=== PATIENT | female | born 1985 | race African-American/Black ===

== ENCOUNTER 2016-02-20 21:54 | Emergency (ER) | payer OTHER ==
[~2016-02-20 21:54] MED LIST: CETI10TA22 PO; HYDR25TA PO; LISI40TA PO; PROAIR RESPICL90 MCG IH; TRIA15CR3 TP
[2016-02-20 22:00] VITALS: BP 157/99
[2016-02-20] MEDS ORDERED: HYDR115S2 PO (22:16)
[2016-02-20] MEDS ORDERED: SULF1TAB24 PO (22:16)
--- NOTE | 2016-02-20 22:17 | PHYS DOC ---
Past Medical History Past Medical History: Asthma, Hypertension Past Surgical History: Alcohol Use: None Drug Use: None Adult General Chief Complaint Chief Complaint: HEADACHE HPI HPI Patient is a 30 year old female presents emergency room with complaint of cough congestion and headache for the past 7 days. Patient reports that she's increased sinus pressure and pain when she bends over. She states that the cough and also gives her headache. She denies any fevers, chills, myalgias or arthralgias. Patient denies foreign travel, antibiotic use or hospitalization within the past 90 days. Review of Systems Review of Systems Constitutional: Denies fever or chills [] Eyes: Denies change in visual acuity, redness, or eye pain [] HENT: Denies nasal congestion or sore throat [] Respiratory: Denies cough or shortness of breath [] Cardiovascular: No additional information not addressed in HPI [] GI: Denies abdominal pain, nausea, vomiting, bloody stools or diarrhea [] : Denies dysuria or hematuria [] Musculoskeletal: Denies back pain or joint pain [] Integument: Denies rash or skin lesions [] Neurologic: Denies headache, focal weakness or sensory changes [] Endocrine: Denies polyuria or polydipsia [] Allergies Allergies Allergies Coded Allergies Type Severity Reaction Last Updated Verified Penicillins Allergy Intermediate 07/04/14 No benzonatate Allergy Intermediate "i will throw up" 04/03/15 Yes prednisone Allergy Intermediate Nausea and Vomiting 04/03/15 No Physical Exam Physical Exam Constitutional: Well developed, well nourished, no acute distress, non-toxic appearance. Patient is ill-appearing. She is not toxic appearing. HENT: Normocephalic, atraumatic, bilateral external ears normal, oropharynx moist, no oral exudates. Thick, mucopurulent drainage and bilateral nares with boggy, swollen mucous membranes. Eyes: PERRLA, EOMI, conjunctiva normal, no discharge. [] Neck: Normal range of motion, no tenderness, supple, no stridor. No meningismus. There is bilateral anterior and posterior cervical lymphadenopathy. Cardiovascular:Heart rate regular rhythm, no murmur [] Lungs & Thorax: There is no evidence respiratory distress or respiratory fatigue. There is no posturing. Lung sounds are clear to auscultation bilaterally. Abdomen: Bowel sounds normal, soft, no tenderness, no masses, no pulsatile masses. [] Skin: Warm, dry, no erythema, no rash. Back: No tenderness, no CVA tenderness. [] Extremities: No tenderness, no cyanosis, no clubbing, ROM intact, no edema. [] Neurologic: Alert and oriented X 3, normal motor function, normal sensory function, no focal deficits noted. [] Psychologic: Affect normal, judgement normal, mood normal. [] Current Patient Data Vital Signs Vital Signs Date Time Temp Pulse Resp B/P Pulse Ox O2 Delivery O2 Flow Rate FiO2 02/20/16 22:00 98.2 84 18 157/99 100 Room Air 98.2 EKG EKG [] Radiology/Procedures Radiology/Procedures [] Course & Med Decision Making Course & Med Decision Making Pertinent Labs and Imaging studies reviewed. (See chart for details) [] Dragon Disclaimer Dragon Disclaimer This electronic medical record was generated, in whole or in part, using a voice recognition dictation system. Departure Departure Impression: Primary Impression: Sinusitis Additional Impression: Upper respiratory infection Disposition: HOME, SELF-CARE Condition: GOOD Referrals: NO PCP (PCP) Patient Instructions: Sinusitis, Ixoy-dl-Rgil, Upper Respiratory Infection, Adult, [id number] Additional Instructions: 1. Take the medication as prescribed. Use iukz-ofn-[id number] Afrin nasal spray twice a day for the next 3 days. 2. Review the discharge instructions for reasons to return to the emergency room. 3. Use the pamphlet provided for assistance in finding a primary care doctor. Be sure to call Sunday to schedule an appointment. Scripts Hydrocodone/Chlorphen Polis (Tussionex Pennkinetic Susp)480 Ml Mary Ann.er.12h5 Ml PO BID #100 ML Prov:CEDRIC ROMERO 02/20/16 Sulfamethoxazole/Trimethoprim (Bactrim Ds Tablet)1 Each Tablet1 Each PO BID #28 TAB Prov:CEDRIC ROMERO 02/20/16 Problem Qualifiers CEDRIC ROMERO Feb 20, 2016 22:17
== END 2016-02-20 22:20 | disposition home or self-care (01) ==
LOC: ER 21:54
DX: J32.9 Chronic sinusitis, unspecified (principal); J06.9 Acute upper respiratory infection, unspecified; I10 Essential (primary) hypertension; J45.909 Unspecified asthma, uncomplicated; Z88.0 Allergy status to penicillin; Z88.1 Allergy status to other antibiotic agents; Z88.8 Allergy status to other drugs, medicaments and biological substances
CPT/HCPCS: 99283

== ENCOUNTER 2016-06-25 22:50 | Emergency (ER) | payer OTHER ==
[~2016-06-25] VITALS: Ht 162.6 cm; Wt 104.3 kg
[~2016-06-25 22:50] MED LIST changes: +HYDR115S2 PO; +SULF1TAB24 PO
[2016-06-25 23:25] VITALS: BP 163/103
[2016-06-25] MEDS ORDERED: IBUP-1060 PO (23:48)
--- NOTE | 2016-06-25 23:48 | PHYS DOC ---
Past Medical History Past Medical History: Asthma, Hypertension Past Surgical History: Alcohol Use: None Drug Use: None Adult General Chief Complaint Chief Complaint: HAND PROBLEM HPI HPI Patient is a 31 year old female presents to the emergency department with a history of right arm pain and discomfort. Patient denies any injury or trauma. She states his been hurting for the last 2 weeks. She states she's been taken ibuprofen 500 mg for the pain and discomfort with no relief. She denies any palpitations movement with the arms. She then states that she is also been having pain and discomfort with her left arm as well. Patient states that she's been having numbness and tingling down to the hands. She also states that she's been taken antibiotics for the arm pain. Review of Systems Review of Systems Constitutional: Denies fever or chills [] Eyes: Denies change in visual acuity, redness, or eye pain [] HENT: Denies nasal congestion or sore throat [] Respiratory: Denies cough or shortness of breath [] Cardiovascular: No additional information not addressed in HPI [] GI: Denies abdominal pain, nausea, vomiting, bloody stools or diarrhea [] : Denies dysuria or hematuria [] Musculoskeletal: Denies back pain or joint pain [] Integument: Denies rash or skin lesions [] Neurologic: Denies headache, focal weakness or sensory changes [] Endocrine: Denies polyuria or polydipsia [] Allergies Allergies Allergies Coded Allergies Type Severity Reaction Last Updated Verified Penicillins Allergy Intermediate 07/04/14 No benzonatate Allergy Intermediate "i will throw up" 04/03/15 Yes prednisone Allergy Intermediate Nausea and Vomiting 04/03/15 No Physical Exam Physical Exam Constitutional: Well developed, well nourished, no acute distress, non-toxic appearance. [] HENT: Normocephalic, atraumatic, bilateral external ears normal, oropharynx moist, no oral exudates, nose normal. [] Eyes: PERRLA, EOMI, conjunctiva normal, no discharge. [] Neck: Normal range of motion, no tenderness, supple, no stridor. [] Cardiovascular:Heart rate regular rhythm, no murmur [] Lungs & Thorax: Bilateral breath sounds clear to auscultation [] Skin: Warm, dry, no erythema, no rash. [] Back: No tenderness Extremities: Right elbow tenderness, no cyanosis, no clubbing, ROM intact, no edema. She'll with full range of motion although she states that she has increased pain with straightening the elbow. 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 No swelling or deformity noted. Neurologic: Alert and oriented X 3, normal motor function, normal sensory function, no focal deficits noted. [] Psychologic: Affect normal, judgement normal, mood normal. [] Current Patient Data Vital Signs Vital Signs Date Time Temp Pulse Resp B/P (MAP) Pulse Ox O2 Delivery O2 Flow Rate FiO2 06/25/16 23:25 98.3 90 20 96 Room Air 98.3 EKG EKG [] Radiology/Procedures Radiology/Procedures [] Course & Med Decision Making Course & Med Decision Making Pertinent Labs and Imaging studies reviewed. (See chart for details) Patient was encouraged to use ibuprofen 800 mg every 8 hours. Also recommended rest and elevation as much as possible ice packs on 20 minutes off 20 minutes several times a day. Patient will be provided with orthopedic name and number to follow up with. Patient was provided with signs and symptoms to return back to emergency department. [] Dragon Disclaimer Dragon Disclaimer This electronic medical record was generated, in whole or in part, using a voice recognition dictation system. Departure Departure Impression: Primary Impression: Bursitis of elbow Disposition: 01 HOME, SELF-CARE Condition: STABLE Referrals: NO PCP (PCP) Patient Instructions: Bursitis, [id number] Additional Instructions: Activity as tolerated. Medications as prescribed. Ibuprofen 800 mg every 8 hours take this medication with food to prevent stomach upset. If this develops stop taking the medication Ice packs on 20 minutes off 20 minutes several times a day. Elevation as much as possible. Follow-up with orthopedic as needed in the next week. Return back to emergency prior signs symptoms of become worse. Scripts Ibuprofen (IBUPROFEN) 800 Mg Tablet 800 MG PO PRN Q6HRS Y for INFLAMMATION, #20 TAB Prov: NANCY OBREGON APRN 06/25/16 NANCY OBREGON APRN June 25, 2016 23:48
[2016-06-26] MEDS ORDERED: IBUPROFEN 800 MG TABLET. PO ONE
== END 2016-06-25 23:50 | disposition home or self-care (01) ==
LOC: ER 22:50
DX: M70.21 Olecranon bursitis, right elbow (principal); J45.909 Unspecified asthma, uncomplicated; I10 Essential (primary) hypertension; Z88.1 Allergy status to other antibiotic agents; Z88.8 Allergy status to other drugs, medicaments and biological substances; Y93.89 Activity, other specified
CPT/HCPCS: 99283

== ENCOUNTER 2016-07-26 20:24 | Emergency (ER) | payer SELFPAY ==
[~2016-07-26] VITALS: Ht 162.6 cm; Wt 104.3 kg
[~2016-07-26 20:24] MED LIST changes: +IBUP-1060 PO
[2016-07-26 21:18] VITALS: BP 147/101
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
[2016-07-26] MEDS ORDERED: NAPR500T3 PO (23:13)
[2016-07-26] MEDS ORDERED: CYCL10TA2 PO (23:13)
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
[2016-07-26] MEDS ORDERED: HYDROcodone/APAP 5/325MG 1 TAB TABLET PO ONE (23:30)
[2016-07-26] MEDS ORDERED: CYCLOBENZAPRINE 10 MG TABLET. PO ONE (23:30)
== END 2016-07-26 23:28 | disposition home or self-care (01) ==
LOC: ER 20:24
DX: S13.4XXA Sprain of ligaments of cervical spine, initial encounter (principal); S29.019A Strain of muscle and tendon of unspecified wall of thorax, initial encounter; J45.909 Unspecified asthma, uncomplicated; I10 Essential (primary) hypertension; Z88.0 Allergy status to penicillin; Z88.8 Allergy status to other drugs, medicaments and biological substances; V49.59XA Passenger injured in collision with other motor vehicles in traffic accident, initial encounter; Y99.8 Other external cause status; Y93.89 Activity, other specified; Y92.488 Other paved roadways as the place of occurrence of the external cause
CPT/HCPCS: 72125; 72128; 81025; 99284-25

== ENCOUNTER 2016-07-30 20:26 | Emergency (ER) | payer SELFPAY ==
[~2016-07-30] VITALS: Ht 162.6 cm; Wt 104.3 kg
[~2016-07-30 20:26] MED LIST changes: +CYCL10TA2 PO; +NAPR500T3 PO
[2016-07-30 20:42] VITALS: BP 158/90
[2016-07-30] MEDS ORDERED: IBUPROFEN 800 MG TABLET. PO ONE (21:15)
--- NOTE | 2016-07-30 21:19 | PHYS DOC ---
Past Medical History Past Medical History: Asthma, Hypertension Past Surgical History: Alcohol Use: None Drug Use: None Adult General Chief Complaint Chief Complaint: TOE PROBLEM HPI HPI Patient is a 31 year old female resents to emergency department stating that she is having right great toe pain and discomfort. She states that she has had this pain for the last 3 days. She states that she has tried to take ibuprofen for the pain and discomfort without much relief. She states that she does not take it every 8 hours as directed. Patient states that she does have a family history of gout. She denies any trauma or injury to her foot. Review of Systems Review of Systems Constitutional: Denies fever or chills [] Eyes: Denies change in visual acuity, redness, or eye pain [] HENT: Denies nasal congestion or sore throat [] Respiratory: Denies cough or shortness of breath [] Cardiovascular: No additional information not addressed in HPI [] GI: Denies abdominal pain, nausea, vomiting, bloody stools or diarrhea [] : Denies dysuria or hematuria [] Musculoskeletal: Denies back pain C/o right great toe pain Integument: Denies rash or skin lesions [] Neurologic: Denies headache, focal weakness or sensory changes [] Endocrine: Denies polyuria or polydipsia [] Current Medications Current Medications Current Medications Medications (Trade) Dose Ordered Sig/Rosa Maria Start Time Stop Time Status Last Admin Dose Admin Ibuprofen (Motrin) 800 mg 1X ONCE 07/30/16 21:15 07/30/16 21:16 DC 07/30/16 21:24 800 MG Allergies Allergies Allergies Coded Allergies Type Severity Reaction Last Updated Verified Penicillins Allergy Intermediate 07/04/14 No benzonatate Allergy Intermediate "i will throw up" 04/03/15 Yes prednisone Allergy Intermediate Nausea and Vomiting 04/03/15 No Physical Exam Physical Exam Constitutional: Well developed, well nourished, no acute distress, non-toxic appearance. [] HENT: Normocephalic, atraumatic, bilateral external ears normal, oropharynx moist, no oral exudates, nose normal. [] Eyes: PERRLA, EOMI, conjunctiva normal, no discharge. [] Neck: Normal range of motion, no tenderness, supple, no stridor. [] Cardiovascular:Heart rate regular rhythm Lungs & Thorax: No respiratory distress noted Skin: Warm, dry, no erythema, no rash. [] Back: No tenderness Extremities: Great toe tenderness, toe appears to be red and warm, no cyanosis, no clubbing, ROM intact, no edema. Slight swelling noted to the great toe. No further discoloration noted. Cap refill < 2 seconds. Neurologic: Alert and oriented X 3, normal motor function, normal sensory function, no focal deficits noted. [] Psychologic: Affect normal, judgement normal, mood normal. [] Current Patient Data Vital Signs Vital Signs Date Time Temp Pulse Resp B/P (MAP) Pulse Ox O2 Delivery O2 Flow Rate FiO2 07/30/16 20:42 98.5 107 18 99 Room Air 98.5 Lab Values Laboratory Tests Test 07/30/16 21:25 White Blood Count 7.2 x10^3/uL (4.0-11.0) Red Blood Count 4.14 x10^6/uL (3.50-5.40) Hemoglobin 13.1 g/dL (12.0-15.5) Hematocrit 39.5 % (36.0-47.0) Mean Corpuscular Volume 95 fL (79-100) Mean Corpuscular Hemoglobin 32 pg (25-35) Mean Corpuscular Hemoglobin Concent 33 g/dL (31-37) Red Cell Distribution Width 15.0 % (11.5-14.5) H Platelet Count 240 x10^3/uL (140-400) Neutrophils (%) (Auto) 48 % (31-73) Lymphocytes (%) (Auto) 36 % (24-48) Monocytes (%) (Auto) 11 % (0-9) H Eosinophils (%) (Auto) 4 % (0-3) H Basophils (%) (Auto) 1 % (0-3) Neutrophils # (Auto) 3.4 x10^3uL (1.8-7.7) Lymphocytes # (Auto) 2.6 x10^3/uL (1.0-4.8) Monocytes # (Auto) 0.8 x10^3/uL (0.0-1.1) Eosinophils # (Auto) 0.3 x10^3/uL (0.0-0.7) Basophils # (Auto) 0.0 x10^3/uL (0.0-0.2) Erythrocyte Sedimentation Rate 14 (0-25) Uric Acid 4.4 mg/dL (2.6-6.0) C-Reactive Protein, Quantitative 14.8 mg/L (0-3.3) H Laboratory Tests 07/30/16 21:25 EKG EKG [] Radiology/Procedures Radiology/Procedures [] Course & Med Decision Making Course & Med Decision Making Pertinent Labs and Imaging studies reviewed. (See chart for details) X-ray was negative for any abnormality per Dr. Zazueta. She has been provided with ibuprofen here in the emergency department as she had driven herself here to the emergency department. Uric acid was within normal limits. C-reactive protein was elevated at 14.8. 2240 Report was given to Dr Zazueta who will followup on the CBC and sed rate. He is aware the x-ray was negative as he had provided results. He is aware of the treatment plan as follows. Will be placed on Bactrim for cellulitis. She'll also be provided with ibuprofen 800 mg which she can take for pain and discomfort. She is also been prescribed hydrocodone for severe pain and discomfort she was instructed this medication will cause drowsiness do not take any be alert and oriented. Spoke with patient regards to ice packs elevation and following up with her primary care physician. She'll be given a doctor's list to follow up with. Recommended to return back to emergency department as signs and symptoms to return has been provided. Patient agrees with discharge instructions treatment regimens and follow-up recommendations. [] Dragon Disclaimer Dragon Disclaimer This electronic medical record was generated, in whole or in part, using a voice recognition dictation system. Departure Departure Impression: Primary Impression: Cellulitis of great toe, right Disposition: 01 HOME, SELF-CARE Condition: STABLE Referrals: NO PCP (PCP) Patient Instructions: Cellulitis, Jogz-ij-Rrfe Additional Instructions: Your x-rays were negative for any bony abnormalities. Ibuprofen 800 mg every 8 hours with food stop taking few develop an upset stomach. [place] for severe pain and discomfort. This medication will cause drowsiness do not take any be alert and oriented. Medication as prescribed. Wear the postop shoe for comfort. Elevation as much as possible. Follow-up with your primary care physician in the next 7 days. Return back to emergency department for signs and symptoms of become worse. Scripts Hydrocodone/Apap 5-325 (NORCO 5-325 TABLET) 1 Each Tablet 1 TAB PO PRN Q6HRS Y for PAIN, #10 TAB 0 Refills Prov: NANCY OBREGON APRN 07/30/16 Ibuprofen (IBUPROFEN) 800 Mg Tablet 800 MG PO PRN Q8HRS Y for INFLAMMATION, #30 TAB Prov: NANCY OBREGON APRN 07/30/16 Sulfamethoxazole/Trimethoprim (BACTRIM DS TABLET) 1 Each Tablet 1 TAB PO BID, #20 TAB Prov: NANCY OBREGON APRN 07/30/16 NANCY OBREGON APRN Jul 30, 2016 21:19
[2016-07-30 21:50] LABS: C-REACTIVE PROTEIN 14.8 mg/L (0-3.3); URIC ACID 4.4 mg/dL (2.6-6.0)
[2016-07-30] MEDS ORDERED: SULF1TAB24 PO (22:07)
[2016-07-30] MEDS ORDERED: IBUP-1060 PO (22:09)
[2016-07-30] MEDS ORDERED: HYDR-971 PO (22:25)
[2016-07-30 22:37] LABS: BASO % 1 % (0-3); EOS % 4 % (0-3); HEMATOCRIT 39.5 % (36.0-47.0); HEMOGLOBIN 13.1 g/dL (12.0-15.5); LYMPH # 2.6 x10^3/uL (1.0-4.8); LYMPH % 36 % (24-48); MEAN CORPUSCULAR HEMOGLOBIN 32 pg (25-35); MEAN CORPUSCULAR HGB CONC 33 g/dL (31-37); MEAN CORPUSCULAR VOLUME 95 fL (79-100); MONO % 11 % (0-9); NEUT % 48 % (31-73); PLATELET COUNT 240 x10^3/uL (140-400); RED BLOOD COUNT 4.14 x10^6/uL (3.50-5.40); WHITE BLOOD COUNT 7.2 x10^3/uL (4.0-11.0)
--- NOTE | 2016-07-31 07:55 | RAD ---
EXAM: Right first toe 3 views. HISTORY: First toe swelling and pain. COMPARISON: None. FINDINGS: No fractures are identified. Joint spaces and alignment are maintained. No effusions or tophus are seen. There may be a small soft tissue bunion. IMPRESSION: 1. No fracture. Correlate for soft tissue swelling or a small soft tissue bunion.
== END 2016-07-30 22:57 | disposition home or self-care (01) ==
LOC: ER 20:26
DX: L03.031 Cellulitis of right toe (principal); I10 Essential (primary) hypertension; J45.909 Unspecified asthma, uncomplicated; Z88.0 Allergy status to penicillin; Z88.8 Allergy status to other drugs, medicaments and biological substances
CPT/HCPCS: 36415; 73660; 84550; 85027; 85651; 86140; 99285-25

== ENCOUNTER 2017-03-28 22:12 | Emergency (ER) | payer SELFPAY, OTHER | END 2017-03-28 23:30 | disposition home or self-care (01) | LOC: ER 22:12 | DX: M54.5 Low back pain (principal); M54.2 Cervicalgia; J45.909 Unspecified asthma, uncomplicated; I10 Essential (primary) hypertension; Z88.0 Allergy status to penicillin; Z88.8 Allergy status to other drugs, medicaments and biological substances; V47.6XXA Car passenger injured in collision with fixed or stationary object in traffic accident, initial encounter; Y93.89 Activity, other specified; Y92.410 Unspecified street and highway as the place of occurrence of the external cause; Y99.8 Other external cause status | CPT/HCPCS: 99284 ==

== ENCOUNTER 2018-02-07 09:52 | Emergency (ER) | payer MEDICAID, OTHER ==
[~2018-02-07] VITALS: Ht 162.6 cm; Wt 106.1 kg
[~2018-02-07 09:52] MED LIST changes: +CYCL5TAB PO; +HYDR-3164 PO; +IBUP-1007 PO; +LISI-130 PO; +LISI-334 PO; -LISI40TA PO; +NAPR-514 PO; -NAPR500T3 PO; +VENTOLIN HFA18 GM INH; +lidoderm 5% patch TOP
[2018-02-07] MEDS ORDERED: IV NORMAL SALINE 1000ML BAG 1,000 ML IV SCH (11:02)
[2018-02-07 11:10] LABS: BILIRUBIN,URINE NEGATIVE (NEG); CLARITY,URINE CLEAR; COLOR,URINE YELLOW; NITRITE,URINE NEGATIVE (NEG); PH,URINE 6.5; PROTEIN,URINE NEGATIVE (NEG-TRACE)
[2018-02-07] MEDS ORDERED: ONDANSETRON PF 4 MG/2 ML VIAL. IV ONE (11:15)
[2018-02-07] MEDS ORDERED: fentaNYL PF VIAL 100 MCG/2 ML VIAL IV ONE (11:15)
[2018-02-07 11:31] LABS: BASO % 1 % (0-3); EOS % 1 % (0-3); HEMATOCRIT 37.7 % (36.0-47.0); HEMOGLOBIN 12.9 g/dL (12.0-15.5); LYMPH # 1.3 x10^3/uL (1.0-4.8); LYMPH % 22 % (24-48); MEAN CORPUSCULAR HEMOGLOBIN 32 pg (25-35); MEAN CORPUSCULAR HGB CONC 34 g/dL (31-37); MEAN CORPUSCULAR VOLUME 93 fL (79-100); MONO # 1.2 x10^3/uL (0.0-1.1); MONO % 19 % (0-9); NEUT # 3.5 x10^3uL (1.8-7.7); NEUT % 58 % (31-73); PLATELET COUNT 274 x10^3/uL (140-400); RED BLOOD COUNT 4.08 x10^6/uL (3.50-5.40); RED CELL DISTRIBUTION WIDTH 16.9 % (11.5-14.5); WHITE BLOOD COUNT 6.1 x10^3/uL (4.0-11.0)
[2018-02-07 11:35] LABS: SQUAMOUS EPITHELIAL CELL,UR MANY /LPF
[2018-02-07 11:36] LABS: YEAST,URINE PRESENT /HPF
[2018-02-07 11:37] LABS: BACTERIA,URINE FEW /HPF (0-FEW); RBC,URINE 0 /HPF (0-2)
[2018-02-07 11:43] LABS: CALCIUM 9.4 mg/dL (8.5-10.1); CREATININE 1.1 mg/dL (0.6-1.0); GFR 68.8; POTASSIUM 3.7 mmol/L (3.5-5.1)
[2018-02-07 11:47] LABS: ALBUMIN 3.8 g/dL (3.4-5.0); ALBUMIN/GLOBULIN RATIO 0.9 (1.0-1.7); TOTAL BILIRUBIN 0.2 mg/dL (0.2-1.0); TOTAL PROTEIN 8.2 g/dL (6.4-8.2)
[2018-02-07] MEDS ORDERED: CONTRAST GIVEN. MC PRN (12:30)
[2018-02-07] MEDS ORDERED: KETOROLAC 30 MG/ML VIAL. IV ONE (12:30)
[2018-02-07] MEDS ORDERED: IOHEXOL 300 MG/ML 100ML VIAL. IV ONE (12:30)
[2018-02-07 12:31] LABS: INFLUENZA A PATIENT NEGATIVE (NEGATIVE); INFLUENZA B PATIENT NEGATIVE (NEGATIVE)
[2018-02-07 12:32] LABS: BARBITURATES NEG (NEG); BENZODIAZEPINES NEG (NEG); CANNABINOIDS NEG (NEG); COCAINE NEG (NEG); METHADONE NEG (NEG); OPIATES NEG (NEG); PHENCYCLIDINE NEG (NEG)
--- NOTE | 2018-02-07 12:36 | PHYS DOC ---
Past Medical History Past Medical History: Asthma, Hypertension Past Surgical History: Additional Information: 1 CIGARETTE A DAY Alcohol Use: None Drug Use: None Adult General Chief Complaint Chief Complaint: ABDOMINAL PAIN HPI HPI Patient is a 32-year-old female who presents with complaint of left lower abdominal pain that radiates into her back that started 2 days ago. She states that she has had nausea but no vomiting. She denies any diarrhea. She states her last normal bowel movement was about 3 days ago. Patient does not believe that she has run a fever. She rates pain at a 9 out of 10 and states that nothing improves her pain. She states the pain is worsened with movement and with palpation. Review of Systems Review of Systems Constitutional: Denies fever or chills [] Respiratory: Denies cough or shortness of breath [] Cardiovascular: No additional information not addressed in HPI [] GI: Complains of left lower abdominal pain with nausea. Denies vomiting or diarrhea [] : Denies dysuria or hematuria [] Musculoskeletal: Complains of lower back pain [] Integument: Denies rash or skin lesions [] All other systems were reviewed and found to be within normal limits, except as documented in this note. Current Medications Current Medications Current Medications Medications (Trade) Dose Ordered Sig/Rosa Maria Start Time Stop Time Status Last Admin Dose Admin Fentanyl Citrate (Fentanyl 2ml Vial) 50 mcg 1X ONCE 02/07/18 11:15 02/07/18 11:16 DC 02/07/18 11:31 50 MCG Info (CONTRAST GIVEN -- Rx MONITORING) 1 each PRN DAILY PRN 02/07/18 12:30 02/07/18 14:49 DC Iohexol (Omnipaque 300 Mg/ml) 75 ml 1X ONCE 02/07/18 12:30 02/07/18 12:31 DC 02/07/18 12:36 75 ML Ketorolac Tromethamine (Toradol 30mg Vial) 30 mg 1X ONCE 02/07/18 12:30 02/07/18 12:31 DC 02/07/18 12:43 30 MG Ondansetron HCl (Zofran) 4 mg 1X ONCE 02/07/18 11:15 02/07/18 11:16 DC 02/07/18 11:30 4 MG Sodium Chloride 1,000 ml @ 1,000 mls/hr Q1H 02/07/18 11:02 02/07/18 12:01 DC 02/07/18 11:30 1,000 MLS/HR Allergies Allergies Allergies Coded Allergies Type Severity Reaction Last Updated Verified Penicillins Allergy Intermediate 07/04/14 No benzonatate Allergy Intermediate "i will throw up" 04/03/15 Yes prednisone Allergy Intermediate Nausea and Vomiting 04/03/15 No Physical Exam Physical Exam Constitutional: Well developed, well nourished, no acute distress, non-toxic appearance. [] HENT: Normocephalic, atraumatic, bilateral external ears normal, oropharynx moist, no oral exudates, nose normal. [] Eyes: PERRLA, EOMI, conjunctiva normal, no discharge. [] Neck: Normal range of motion, no tenderness, supple, no stridor. [] Cardiovascular: Regular rate and rhythm, no murmur [] Lungs & Thorax: Bilateral breath sounds clear to auscultation [] Abdomen: Bowel sounds normal, soft, with moderate reported tenderness to palpation in the left lower abdomen. [] Skin: Warm, dry, no erythema, no rash. [] Extremities: No tenderness, no cyanosis, no clubbing, ROM intact, no edema. [] Neurologic: Alert and oriented X 3, normal motor function, normal sensory function, no focal deficits noted. [] Current Patient Data Vital Signs Vital Signs Date Time Temp Pulse Resp B/P (MAP) Pulse Ox O2 Delivery O2 Flow Rate FiO2 02/07/18 12:01 16 96 Room Air 02/07/18 11:36 82 154/94 (114) 02/07/18 10:37 99.5 99.5 Lab Values Laboratory Tests Test 02/07/18 10:00 02/07/18 10:42 02/07/18 11:19 02/07/18 11:33 Urine Collection Type Unknown Urine Color Yellow Urine Clarity Clear Urine pH 6.5 Urine Specific [place] 1.020 Urine Protein Negative mg/dL (NEG-TRACE) Urine Glucose (UA) Negative mg/dL (NEG) Urine Ketones (Stick) Negative mg/dL (NEG) Urine Blood Negative (NEG) Urine Nitrite Negative (NEG) Urine Bilirubin Negative (NEG) Urine Urobilinogen Dipstick 1.0 mg/dL (0.2 mg/dL) Urine Leukocyte Esterase Negative (NEG) Urine RBC 0 /HPF (0-2) Urine WBC 1-4 /HPF (0-4) Urine Squamous Epithelial Cells Many /LPF Urine Bacteria Few /HPF (0-FEW) Urine Mucus Slight /LPF Urine Yeast Present /HPF Urine Opiates Screen Neg (NEG) Urine Methadone Screen Neg (NEG) Urine Barbiturates Neg (NEG) Urine Phencyclidine Screen Neg (NEG) Urine Amphetamine/Methamphetamine Neg (NEG) Urine Benzodiazepines Screen Neg (NEG) Urine Cocaine Screen Neg (NEG) Urine Cannabinoids Screen Neg (NEG) Urine Ethyl Alcohol Neg (NEG) POC Urine HCG, Qualitative Hcg negative (Negative) White Blood Count 6.1 x10^3/uL (4.0-11.0) Red Blood Count 4.08 x10^6/uL (3.50-5.40) Hemoglobin 12.9 g/dL (12.0-15.5) Hematocrit 37.7 % (36.0-47.0) Mean Corpuscular Volume 93 fL (79-100) Mean Corpuscular Hemoglobin 32 pg (25-35) Mean Corpuscular Hemoglobin Concent 34 g/dL (31-37) Red Cell Distribution Width 16.9 % (11.5-14.5) H Platelet Count 274 x10^3/uL (140-400) Neutrophils (%) (Auto) 58 % (31-73) Lymphocytes (%) (Auto) 22 % (24-48) L Monocytes (%) (Auto) 19 % (0-9) H Eosinophils (%) (Auto) 1 % (0-3) Basophils (%) (Auto) 1 % (0-3) Neutrophils # (Auto) 3.5 x10^3uL (1.8-7.7) Lymphocytes # (Auto) 1.3 x10^3/uL (1.0-4.8) Monocytes # (Auto) 1.2 x10^3/uL (0.0-1.1) H Eosinophils # (Auto) 0.0 x10^3/uL (0.0-0.7) Basophils # (Auto) 0.0 x10^3/uL (0.0-0.2) Sodium Level 138 mmol/L (136-145) Potassium Level 3.7 mmol/L (3.5-5.1) Chloride Level 102 mmol/L (98-107) Carbon Dioxide Level 24 mmol/L (21-32) Anion Gap 12 (6-14) Blood Urea Nitrogen 7 mg/dL (7-20) Creatinine 1.1 mg/dL (0.6-1.0) H Estimated GFR (Cockcroft-Gault) 68.8 BUN/Creatinine Ratio 6 (6-20) Glucose Level 85 mg/dL (70-99) Calcium Level 9.4 mg/dL (8.5-10.1) Total Bilirubin 0.2 mg/dL (0.2-1.0) Aspartate Amino Transferase (AST) 21 U/L (15-37) Alanine Aminotransferase (ALT) 31 U/L (14-59) Alkaline Phosphatase 77 U/L (46-116) Total Protein 8.2 g/dL (6.4-8.2) Albumin 3.8 g/dL (3.4-5.0) Albumin/Globulin Ratio 0.9 (1.0-1.7) L Lipase 79 U/L (73-393) Influenza Type A Antigen Negative (NEGATIVE) Influenza Type B Antigen Negative (NEGATIVE) Laboratory Tests 02/07/18 11:19 Laboratory Tests 02/07/18 11:19 EKG EKG [] Radiology/Procedures Radiology/Procedures [] Impressions: CT ABD PELV W/ IV CONTRST ONLY Indication: Severe mid abdominal and back pain. Exposure: One or more of the following individualized dose reduction techniques were utilized for this examination: 1. Automated exposure control 2. Adjustment of the mA and/or kV according to patient size 3. Use of iterative reconstruction technique. Comparison: None are available. Contrast: Intravenous contrast was given. No oral contrast per request. FINDINGS: Lower thorax: Lung bases are clear. Liver: Unremarkable Spleen: Unremarkable Pancreas: Unremarkable Adrenals: No evidence of mass. Kidneys: No obvious mass. Urinary tracts: No hydronephrosis. Gallbladder: No calcified stone Lymph nodes: No significant enlargement Vessels: Aorta is nonaneurysmal. GI tract: No evidence of acute colitis. No evidence of bowel obstruction. Appendix is normal. Reproductive organs:No evidence of mass. Urinary bladder: Unremarkable. Peritoneum: No evidence of pneumoperitoneum. No free fluid. Abdominal wall:Unremarkable Spine: Small osteolytic lesion measuring less than 1 cm in the T12 vertebral body, does not appear overtly aggressive, may represent a small hemangioma. Bones: No other abnormalities. External Soft Tissue: No acute findings. IMPRESSION: 1. No evidence of acute abnormality in the abdomen or pelvis. 2. Small osteolytic lesion in the T12 vertebrae, nonspecific but would likely represent a hemangioma. Electronically signed by: Ralph Rodriguez MD (02/07/2018 1:24 PM) [facility] Course & Med Decision Making Course & Med Decision Making Pertinent Labs and Imaging studies reviewed. (See chart for details) [] Dragon Disclaimer Dragon Disclaimer This electronic medical record was generated, in whole or in part, using a voice recognition dictation system. Departure Departure Impression: Primary Impression: Abdominal pain, left lower quadrant Disposition: HOME, SELF-CARE Condition: STABLE Referrals: NO PCP (PCP) Patient Instructions: Abdominal Pain Scripts Tramadol Hcl (TRAMADOL HCL) 50 Mg Tablet 50 MG PO Q6HRS PRN for PAIN, #12 TAB Prov: RICKEY ALEXIS Jr. DO 02/07/18 Ondansetron Hcl (ZOFRAN) 4 Mg Tablet 4 MG PO PRN TID PRN for NAUSEA/VOMITING, #15 nausea/vomiting Prov: RICKEY ALEXIS Jr. DO 02/07/18 RICKEY ALEXIS Jr. DO Feb 07, 2018 12:36
[2018-02-07 12:50] LABS: AMPHETAMINE/METHAMPHETAMINE NEG (NEG)
--- NOTE | 2018-02-07 13:27 | RAD ---
CT ABD PELV W/ IV CONTRST ONLY Indication: Severe mid abdominal and back pain. Exposure: One or more of the following individualized dose reduction techniques were utilized for this examination: 1. Automated exposure control 2. Adjustment of the mA and/or kV according to patient size 3. Use of iterative reconstruction technique. Comparison: None are available. Contrast: Intravenous contrast was given. No oral contrast per request. FINDINGS: Lower thorax: Lung bases are clear. Liver: Unremarkable Spleen: Unremarkable Pancreas: Unremarkable Adrenals: No evidence of mass. Kidneys: No obvious mass. Urinary tracts: No hydronephrosis. Gallbladder: No calcified stone Lymph nodes: No significant enlargement Vessels: Aorta is nonaneurysmal. GI tract: No evidence of acute colitis. No evidence of bowel obstruction. Appendix is normal. Reproductive organs:No evidence of mass. Urinary bladder: Unremarkable. Peritoneum: No evidence of pneumoperitoneum. No free fluid. Abdominal wall:Unremarkable Spine: Small osteolytic lesion measuring less than 1 cm in the T12 vertebral body, does not appear overtly aggressive, may represent a small hemangioma. Bones: No other abnormalities. External Soft Tissue: No acute findings. IMPRESSION: 1. No evidence of acute abnormality in the abdomen or pelvis. 2. Small osteolytic lesion in the T12 vertebrae, nonspecific but would likely represent a hemangioma. Electronically signed by: Ralph Rodriguez MD (02/07/2018 1:24 PM) [facility]
[2018-02-07] MEDS ORDERED: ONDA4TAB7 PO (14:21)
[2018-02-07] MEDS ORDERED: TRAM50TA PO (14:21)
[2018-02-07 14:39] VITALS: BP 140/81
== END 2018-02-07 14:44 | disposition home or self-care (01) ==
LOC: ER 09:52
DX: R10.32 Left lower quadrant pain (principal); R11.0 Nausea; R50.9 Fever, unspecified; I10 Essential (primary) hypertension; J45.909 Unspecified asthma, uncomplicated; F17.210 Nicotine dependence, cigarettes, uncomplicated; Z88.0 Allergy status to penicillin; Z88.5 Allergy status to narcotic agent; Z88.8 Allergy status to other drugs, medicaments and biological substances
CPT/HCPCS: 36415; 74177; 80053; 80307; 81001; 81025; 83690; 85025; 87804; 96374; 96375; 99284; J1885; J2405; J3010; J7030; Q9967

== ENCOUNTER 2018-05-27 05:38 | Emergency (ER) | payer OTHER ==
[~2018-05-27] VITALS: Ht 162.6 cm; Wt 99.8 kg
[~2018-05-27 05:38] MED LIST changes: +ONDA4TAB7 PO; +TRAM50TA PO
[2018-05-27 05:44] VITALS: BP 183/107
[2018-05-27] MEDS ORDERED: IPRATRPIUM/ALBUTEROL 0.5/2.5MG 3 ML NEBU. NEB ONE (06:00)
[2018-05-27] MEDS ORDERED: DEXAMETHASONE 4 MG TABLET PO ONE (06:00)
--- NOTE | 2018-05-27 06:01 | PHYS DOC ---
Past Medical History Past Medical History: Asthma, Hypertension (LOGAN JOHNSON DO) Past Surgical History: (LOGAN JOHNSON DO) Smoking: Cigarettes, 1 Pack Per Day Alcohol Use: None Drug Use: None (LOGAN JOHNSON DO) Adult General Chief Complaint Chief Complaint: COUGH HPI HPI 33-year-old female presents with report of progressive dyspnea and wheezing over the last 4 days. Does report some associated nasal congestion and sore throat. Denies fever. Denies . Patient reports last menstrual period was 05/03/2018. Patient does report history of asthma and also reports that she currently is a smoker. She reports she is out of any asthma medications. Denies trauma. Denies leg swelling or calf tenderness. (LOGAN JOHNSON DO) Review of Systems Review of Systems Constitutional: Denies fever or chills [] Eyes: Denies change in visual acuity, redness, or eye pain [] HENT: Reports nasal congestion and sore throat [] Respiratory: Reports cough and shortness of breath [] Cardiovascular: Denies chest pain or palpitations GI: Denies abdominal pain, nausea, vomiting, or diarrhea [] : Denies dysuria or hematuria [] Musculoskeletal: Denies back pain or joint pain [] Integument: Denies rash or skin lesions [] Neurologic: Denies headache, focal weakness or sensory changes [] Complete systems were reviewed and found to be within normal limits, except as documented in this note. (LOGAN JOHNSON DO) Current Medications Current Medications Current Medications Medications (Trade) Dose Ordered Sig/Rosa Maria Start Time Stop Time Status Last Admin Dose Admin Albuterol/ Ipratropium (Duoneb) 3 ml 1X ONCE 05/27/18 06:00 05/27/18 06:01 DC 05/27/18 06:00 3 ML Dexamethasone (Decadron) 10 mg 1X ONCE 05/27/18 06:00 05/27/18 06:01 DC 05/27/18 06:11 10 MG (LISA ZAPATA MD) Allergies Allergies Allergies Coded Allergies Type Severity Reaction Last Updated Verified Penicillins Allergy Intermediate 07/04/14 No benzonatate Allergy Intermediate "i will throw up" 04/03/15 Yes prednisone Allergy Intermediate Nausea and Vomiting 04/03/15 No (LISA ZAPATA MD) Physical Exam Physical Exam Constitutional: Well developed, well nourished, no acute distress, non-toxic appearance. [] HENT: Normocephalic, atraumatic, bilateral TMs normal, oropharynx moist, post nasal drip noted Eyes: Conjunctiva normal, no discharge. [] Neck: Normal range of motion, no tenderness, supple Cardiovascular Heart rate regular rhythm, no murmur [] Lungs & Thorax: Moderate wheezing noted to bilateral lung bases, no chest wall retractions Abdomen: Soft, no tenderness Skin: Warm, dry, no erythema Extremities: No tenderness, ROM intact, no edema. [] Neurologic: Alert and oriented X 3, no focal deficits noted. [] Psychologic: Affect normal, judgement normal, mood normal. [] (LOGAN JOHNSON DO) Current Patient Data Vital Signs Vital Signs Date Time Temp Pulse Resp B/P (MAP) Pulse Ox O2 Delivery O2 Flow Rate FiO2 05/27/18 06:16 99 Room Air 05/27/18 05:44 98.4 98 18 183/107 (132) 98.4 (LISA ZAPATA MD) Lab Values Laboratory Tests Test 05/27/18 05:52 05/27/18 05:59 Influenza Type A Antigen Negative (NEGATIVE) Influenza Type B Antigen Negative (NEGATIVE) POC Urine HCG, Qualitative Hcg negative (Negative) (LISA ZAPATA MD) EKG EKG [] (LOGAN JOHNSON DO) Radiology/Procedures Radiology/Procedures [] (LOGAN JOHNSON DO) Radiology/Procedures Chest x-ray interpreted by me and did not show infiltration. (LISA ZAPATA MD) Course & Med Decision Making Course & Med Decision Making Patient presents with history of present illness and physical exam concerning for URI type symptoms with associated exacerbation of asthma. Rapid flu pending. Symptomatic treatment provided with DuoNeb and oral steroid. Chest x- ray is pending. 0600: Sign out given to Dr. Zapata for further evaluation and final disposition. (LOGAN JOHNSON DO) Course & Med Decision Making @0645: Evaluation of patient in ER showed 33-year-old female patient with history of asthma and currently smoking presented with asthma exacerbation symptom. Patient treated with DuoNeb and dexamethasone with improvement of her condition. Chest x-ray did not show infestation and flu and test was negative. Plan to discharge patient home to diagnose of bronchitis and instruction to quit smoking. (LISA ZAPATA MD) Dragon Disclaimer Dragon Disclaimer This electronic medical record was generated, in whole or in part, using a voice recognition dictation system. (LOGAN JOHNSON DO) Departure Departure Impression: Primary Impression: Upper respiratory infection Additional Impressions: Asthma exacerbation Acute asthmatic bronchitis Tobacco abuse Tobacco abuse counseling Disposition: HOME, SELF-CARE (at 0645) Condition: IMPROVED Referrals: NO PCP (PCP) Patient Instructions: Acute Bronchitis, Asthma Attacks, Prevention, Asthma, Adult, Smoking Cessation, Tips For Success Additional Instructions: Drink plenty of liquids Follow-up with your primary care physician in 3-5 days Return to ER if not getting better Scripts Albuterol Sulfate (PROAIR HFA INHALER) 8.5 Gm Hfa.aer.ad 2 PUFF INH PRN Q6HRS PRN for SHORTNESS OF BREATH, #1 INHALER 0 Refills Prov: LISA ZAPATA MD 05/27/18 Azithromycin (ZITHROMAX) 250 Mg Tablet 1 PKG PO UD for infection, #1 PKG Prov: LISA ZAPATA MD 05/27/18 Hydrocodone/Chlorphen P-Stirex (Tussionex Pennkinetic Susp) 115 Ml Mary [place].er.12h 5 ML PO BID for cough and congestion, #60 ML Prov: LISA ZAPATA MD 05/27/18 Problem Qualifiers Additional Impressions: Asthma exacerbation Asthma severity: mild Asthma persistence: intermittent Qualified Codes: J45.21 - Mild intermittent asthma with (acute) exacerbation LOGAN JOHNSON DO May 27, 2018 06:01 LISA ZAPATA MD May 27, 2018 06:08
[2018-05-27 06:38] LABS: INFLUENZA A PATIENT NEGATIVE (NEGATIVE); INFLUENZA B PATIENT NEGATIVE (NEGATIVE)
[2018-05-27] MEDS ORDERED: AZIT250T PO (06:49)
[2018-05-27] MEDS ORDERED: ALBU2.5V8 INH (06:49)
[2018-05-27] MEDS ORDERED: HYDR115S2 PO (06:49)
--- NOTE | 2018-05-27 08:11 | RAD ---
CHEST PA LATERAL Clinical indications: COUGH X 3 DAYS COMPARISON: August 24, 2011. Findings: No acute lung infiltrate or pleural effusion or pulmonary edema or lung mass or pneumothorax is seen. The heart size, pulmonary vasculature, mediastinum and both conner are unremarkable. The osseous structures appear intact. Impression: No acute radiographic abnormality is seen. Electronically signed by: Johnson Noland MD (05/27/2018 8:08 AM) [facility]
== END 2018-05-27 07:05 | disposition home or self-care (01) ==
LOC: ER 05:38
DX: J45.21 Mild intermittent asthma with (acute) exacerbation (principal); J06.9 Acute upper respiratory infection, unspecified; F17.210 Nicotine dependence, cigarettes, uncomplicated; Z71.6 Tobacco abuse counseling; I10 Essential (primary) hypertension; Z88.0 Allergy status to penicillin; Z88.8 Allergy status to other drugs, medicaments and biological substances
CPT/HCPCS: 71046; 81025; 87804; 94640; 99284; J7620; J8540

== ENCOUNTER 2018-07-12 22:31 | Emergency (ER) | payer OTHER ==
[~2018-07-12] VITALS: Ht 162.6 cm; Wt 99.8 kg
[~2018-07-12 22:31] MED LIST changes: +ALBU2.5V8 INH; +AZIT250T PO
[2018-07-12 22:33] VITALS: BP 162/98
[2018-07-12] MEDS ORDERED: diphenhydrAMINE HCL 25 MG CAPSULE PO ONE (23:30)
[2018-07-12] MEDS ORDERED: DEXAMETHASONE SOD PHOS 20 MG/5 ML VIAL. IM ONE (23:30)
[2018-07-12] MEDS ORDERED: PROCHLORPERAZINE 10 MG/2 ML VIAL. IM ONE (23:30)
[2018-07-12] MEDS ORDERED: KETOROLAC 60 MG/2 ML VIAL. IM ONE (23:30)
[2018-07-12] MEDS ORDERED: PROCHLORPERAZINE 10 MG/2 ML VIAL. IV ONE (23:45)
[2018-07-12] MEDS ORDERED: KETOROLAC 30 MG/ML VIAL. IV ONE (23:45)
[2018-07-12] MEDS ORDERED: IV NORMAL SALINE 1000ML BAG 1,000 ML IV ONE (23:45)
[2018-07-12] MEDS ORDERED: DEXAMETHASONE SOD PHOS 20 MG/5 ML VIAL. IV ONE (23:45)
--- NOTE | 2018-07-13 00:22 | PHYS DOC ---
Past Medical History Past Medical History: Asthma, Hypertension, Migraines (CIARAN PAGE APRN) Past Surgical History: (CIARAN PAGE APRN) Alcohol Use: None Drug Use: None (CIARAN PAGE APRN) Adult General Chief Complaint Chief Complaint: HEADACHE HPI HPI Patient is a 33 year old female with a history of hypertension, migraine headaches, who presents to the ED today complaining of a 10 out of 10 generalize frontal headache that has been going on intermittently for 3 days. Patient is also complaining of nausea and photosensitivity. She states this headache is consistent with her regular migraines. Denies any vomiting. Denied this being the worst headache in her life. She states she has tried [id number] medications with no relief. (CIARAN PAGE APRN) Review of Systems Review of Systems Constitutional: Denies fever or chills [] Eyes: Denies change in visual acuity, redness, or eye pain [] HENT: Denies nasal congestion or sore throat [] Respiratory: Denies cough or shortness of breath [] Cardiovascular: No additional information not addressed in HPI [] GI: Reports nausea. Denies abdominal pain, vomiting, bloody stools or diarrhea [] : Denies dysuria or hematuria [] Musculoskeletal: Denies back pain or joint pain [] Integument: Denies rash or skin lesions [] Neurologic: Reports headache, denies, focal weakness or sensory changes [] All other systems were reviewed and found to be within normal limits, except as documented in this note. (CIARAN PAGE APRN) Current Medications Current Medications Current Medications Medications (Trade) Dose Ordered Sig/Rosa Maria Start Time Stop Time Status Last Admin Dose Admin Dexamethasone Sodium Phosphate (Decadron) 10 mg 1X ONCE 07/12/18 23:45 07/12/18 23:46 DC 07/12/18 23:45 10 MG Diphenhydramine HCl (Benadryl) 25 mg 1X ONCE 07/12/18 23:30 07/12/18 23:31 DC 07/12/18 23:30 25 MG Ketorolac Tromethamine (Toradol 30mg Vial) 30 mg 1X ONCE 07/12/18 23:45 07/12/18 23:46 DC 07/12/18 23:45 30 MG Ketorolac Tromethamine (Toradol Im) 60 mg 1X ONCE 07/12/18 23:30 07/12/18 23:31 Cancel Prochlorperazine Edisylate (Compazine) 10 mg 1X ONCE 07/12/18 23:45 07/12/18 23:46 DC 07/12/18 23:45 10 MG Sodium Chloride 1,000 ml @ 1,000 mls/hr 1X ONCE 07/12/18 23:45 07/13/18 00:36 DC 07/12/18 23:45 1,000 MLS/HR (JOSEPH KIM MD) Allergies Allergies Allergies Coded Allergies Type Severity Reaction Last Updated Verified Penicillins Allergy Intermediate 07/04/14 No benzonatate Allergy Intermediate "i will throw up" 04/03/15 Yes prednisone Allergy Intermediate Nausea and Vomiting 04/03/15 No (JOSEPH KIM MD) Physical Exam Physical Exam Constitutional: Well developed, well nourished, no acute distress, non-toxic appearance. [] HENT: Normocephalic, atraumatic, bilateral external ears normal, oropharynx moist, no oral exudates, nose normal. [] Eyes: PERRLA, EOMI, conjunctiva normal, no discharge. [] Neck: Normal range of motion, no tenderness, supple, no stridor. [] Cardiovascular:Heart rate regular rhythm, no murmur [] Lungs & Thorax: Bilateral breath sounds clear to auscultation [] Abdomen: Bowel sounds normal, soft, no tenderness, no masses, no pulsatile masses. [] Skin: Warm, dry, no erythema, no rash. [] Back: No tenderness, no CVA tenderness. [] Extremities: No tenderness, no cyanosis, no clubbing, ROM intact, no edema. [] Neurologic: Alert and oriented X 3, normal motor function, normal sensory function, no focal deficits noted. Cranial nerves II through XII intact Psychologic: Affect normal, judgement normal, mood normal. [] (CIARAN PAGE APRN) Current Patient Data Vital Signs Vital Signs Date Time Temp Pulse Resp B/P (MAP) Pulse Ox O2 Delivery O2 Flow Rate FiO2 07/12/18 22:33 97.8 75 16 162/98 (119) 98 Room Air 97.8 (JOSEPH KIM MD) EKG EKG [] (CIARAN PAGE APRN) Radiology/Procedures Radiology/Procedures [] (CIARAN PAGE APRN) Course & Med Decision Making Course & Med Decision Making Pertinent Labs and Imaging studies reviewed. (See chart for details) This is a 33-year-old female patient with history of migraine headaches presenting to the ED today with the same. Patient was given a liter of fluid. Given Toradol IV, Compazine IV, Decadron, and Benadryl by mouth. On reevaluation patient states her symptoms have subsided she feels better she would like to go home. She was discharged to home and instructed to follow-up with her PCP. Her BP was around 160s over low 90s. She states she has a history of hypertension and is currently not taking her medications because they're . (CIARAN PAGE APRN) Course & Med Decision Making This patient was seen by TRISH. I did not see or evaluate the pt unless otherwise specified but I was available for consultation. (JOSEPH KIM MD) Dragon Disclaimer Dragon Disclaimer This electronic medical record was generated, in whole or in part, using a voice recognition dictation system. (CIARAN PAGE APRN) Departure Departure Impression: Primary Impression: Migraine headache Disposition: HOME, SELF-CARE Condition: STABLE Referrals: NO PCP (PCP) Follow-up with your doctor next week Patient Instructions: Migraine Headache Additional Instructions: You were evaluated in the emergency room for a migraine headache. Please follow- up with your own doctor in the course of next week. Your blood pressure was also running high at 160s over 90s. Normal blood pressure is less than 120/80. Ensure you are taking your medications. Problem Qualifiers Primary Impression: Migraine headache Migraine type: unspecified Status migrainosus presence: without status migrainosus Intractability: not intractable Qualified Codes: G43.909 - Migraine, unspecified, not intractable, without status migrainosus CIARAN PAGE APRN July 13, 2018 00:22 JOSEPH KIM MD July 13, 2018 02:56
== END 2018-07-13 00:30 | disposition home or self-care (01) ==
LOC: ER 22:31
DX: G43.909 Migraine, unspecified, not intractable, without status migrainosus (principal); I10 Essential (primary) hypertension; J45.909 Unspecified asthma, uncomplicated; Z88.0 Allergy status to penicillin; Z88.5 Allergy status to narcotic agent; Z88.8 Allergy status to other drugs, medicaments and biological substances
CPT/HCPCS: 96374; 96375; 99284; J0780; J1100; J1885; J7030; Q0163

== ENCOUNTER 2018-10-15 07:53 | Emergency (ER) | payer OTHER ==
[~2018-10-15] VITALS: Ht 162.6 cm; Wt 106.6 kg
[2018-10-15 08:05] VITALS: BP 132/100
[2018-10-15] MEDS ORDERED: HYDR5SUS PO (08:38)
[2018-10-15] MEDS ORDERED: AZIT250T PO (08:38)
[2018-10-15] MEDS ORDERED: ALBU2.5V8 INH (08:38)
--- NOTE | 2018-10-15 08:39 | PHYS DOC ---
Past Medical History Past Medical History: Asthma, Hypertension, Migraines Past Surgical History: Additional Information: pt smokes "a couple" cigarettes/day Alcohol Use: None Drug Use: None Adult General Chief Complaint Chief Complaint: COUGH HPI HPI Patient is a 33 year old female who presents with complaining of cough and shortness of breath. Patient complaining of productive cough with yellow sputum for one week and shortness of breath with exertion and during episodes of cough. Patient states she has had episodes of chills without fever and complaining of nasal congestion, earache, myalgia and headache. Patient states she is waking up at the middle of night because of cough and shortness of breath. Patient has history of asthma and does not have inhaler at home. Patient denies , vomiting, diarrhea, focal neuro deficit, chest pain. Review of Systems Review of Systems Constitutional: Denies fever, reports chills [] Eyes: Denies change in visual acuity, redness, or eye pain [] HENT: Denies sore throat, reports nasal congestion and earache [] Respiratory: Reports cough and shortness of breath Cardiovascular: No additional information not addressed in HPI [] GI: Denies abdominal pain, nausea, vomiting, bloody stools or diarrhea [] : Denies dysuria or hematuria [] Musculoskeletal: Denies back pain or joint pain [] Integument: Denies rash or skin lesions [] Neurologic: Denies headache, focal weakness or sensory changes [] Endocrine: Denies polyuria or polydipsia [] All other systems were reviewed and found to be within normal limits, except as documented in this note. Current Medications Current Medications Current Medications Medications (Trade) Dose Ordered Sig/Rosa Maria Start Time Stop Time Status Last Admin Dose Admin Acetaminophen/ Hydrocodone Bitart (Lortab 5/325) 2 tab 1X ONCE 10/15/18 08:45 10/15/18 08:46 DC 10/15/18 08:25 2 TAB Albuterol/ Ipratropium (Duoneb) 3 ml 1X ONCE 10/15/18 08:45 10/15/18 08:46 DC 10/15/18 08:29 3 ML Allergies Allergies Allergies Coded Allergies Type Severity Reaction Last Updated Verified Penicillins Allergy Intermediate 07/04/14 No benzonatate Allergy Intermediate "i will throw up" 04/03/15 Yes prednisone Allergy Intermediate Nausea and Vomiting 04/03/15 No Physical Exam Physical Exam Constitutional: Well developed, well nourished, mild distress, non-toxic appearance. [] HENT: Normocephalic, atraumatic, normal tympanic membrane, pharyngeal erythema without edema and exudates, moist oral mucosa, nasal congestion. Eyes: PERRLA, EOMI, conjunctiva normal, no discharge. [] Neck: Normal range of motion, no tenderness, supple, no stridor. [] Cardiovascular:Heart rate regular rhythm, no murmur [] Lungs & Thorax: Mild wheezing and rhonchi in bilateral lung without respiratory distress. Abdomen: Bowel sounds normal, soft, no tenderness, no masses, no pulsatile masses. [] Skin: Warm, dry, no erythema, no rash. [] Back: No tenderness, no CVA tenderness. [] Extremities: No tenderness, no cyanosis, no clubbing, ROM intact, no edema. [] Neurologic: Alert and oriented X 3, no focal deficits noted. [] Psychologic: Affect anxious, judgement normal, mood normal. [] Current Patient Data Vital Signs Vital Signs Date Time Temp Pulse Resp B/P (MAP) Pulse Ox O2 Delivery O2 Flow Rate FiO2 10/15/18 08:29 97 Room Air 10/15/18 08:25 18 10/15/18 08:05 98.1 113 132/100 (111) 98.1 EKG EKG [] Radiology/Procedures Radiology/Procedures [] Course & Med Decision Making Course & Med Decision Making Evaluation of patient in ER showed 33-year-old female patient presented with URI symptoms for 1 week with history of asthma. Patient had wheezing and treated with nebulizer treatment with improvement of her condition. Patient refused to have chest x-ray. Plan discharge patient home to diagnose of asthma bronchitis. I've spoken with the patient and/or caregivers. I've explained the patient's condition, diagnosis and treatment plan based on information available to me at this time. I've answered the patient's and/or caregivers questions and addressed any concerns. The patient and/or caregivers have a good understanding the patient's diagnosis, condition and treatment plan as can be expected at this point. Vital signs have been stabilized. The patient's condition is stable for discharge from the emergency department. The patient will pursue further outpatient evaluation with her primary care provider or other designated consulting physician as outlined in the discharge instructions. Patient and/or caregivers are agreeable to this plan of care and follow-up instructions have been explained in detail. The patient and/or caregivers have received these instructions in written format and expressed understanding of these discharge instructions. The patient and her caregivers are aware that if any significant change in condition or worsening of symptoms should prompt him to immediately return to this of the closest emergency department. If an emergent department is not readily available I would encourage him to call 911. Dionicio Disclaimer Dionicio Disclaimer This electronic medical record was generated, in whole or in part, using a voice recognition dictation system. Departure Departure Impression: Primary Impression: Asthmatic bronchitis with acute exacerbation Additional Impression: Upper respiratory infection Disposition: HOME, SELF-CARE (at 0 840) Condition: IMPROVED Referrals: NO PCP (PCP) Patient Instructions: Asthma, Acute Bronchospasm, Upper Respiratory Infection, Adult Additional Instructions: Drink plenty of liquids Follow-up with your primary care physician in 3-5 days Return to ER if not getting better Scripts Azithromycin (ZITHROMAX) 250 Mg Tablet 1 PKG PO UD for infection, #1 PKG Prov: LISA ZAPATA MD 10/15/18 Hydrocodone/Chlorphen Polis (HYDROCODONE-CHLORPHENIRAM SUSP) 5 Ml Mary Ann.er.12h 5 ML PO PRN Q12HR PRN for COUGH, #60 ML 0 Refills Prov: LISA ZAPATA MD 10/15/18 Albuterol Sulfate (PROAIR HFA INHALER) 8.5 Gm Hfa.aer.ad 2 PUFF INH PRN Q6HRS PRN for SHORTNESS OF BREATH, #1 INHALER 0 Refills Prov: LISA ZAPATA MD 10/15/18 Problem Qualifiers Primary Impression: Asthmatic bronchitis with acute exacerbation Asthma severity: mild Asthma persistence: intermittent Qualified Codes: J45.21 - Mild intermittent asthma with (acute) exacerbation Additional Impression: Upper respiratory infection URI type: unspecified URI Qualified Codes: J06.9 - Acute upper respiratory infection, unspecified LISA ZAPATA MD Oct 15, 2018 08:39
[2018-10-15] MEDS ORDERED: IPRATRPIUM/ALBUTEROL 0.5/2.5MG 3 ML NEBU. NEB ONE (08:45)
[2018-10-15] MEDS ORDERED: HYDROcodone/APAP 5/325MG 1 TAB TABLET PO ONE (08:45)
== END 2018-10-15 08:46 | disposition home or self-care (01) ==
LOC: ER 07:53
DX: J45.21 Mild intermittent asthma with (acute) exacerbation (principal); I10 Essential (primary) hypertension; G43.909 Migraine, unspecified, not intractable, without status migrainosus; F17.210 Nicotine dependence, cigarettes, uncomplicated; Z98.890 Other specified postprocedural states; Z88.0 Allergy status to penicillin; Z88.8 Allergy status to other drugs, medicaments and biological substances
CPT/HCPCS: 94640; 99283; J7620

== ENCOUNTER 2019-02-13 12:18 | Emergency (ER) | payer OTHER ==
[~2019-02-13] VITALS: Ht 167.6 cm; Wt 106.6 kg
[~2019-02-13 12:18] MED LIST changes: +HYDR5SUS PO
[2019-02-13 12:40] VITALS: BP 137/92
[2019-02-13] MEDS ORDERED: PROC10TA57 PO (13:57)
[2019-02-13] MEDS ORDERED: SUMA50TA3 PO (13:57)
--- NOTE | 2019-02-13 13:57 | PHYS DOC ---
Past Medical History Past Medical History: Asthma, Hypertension, Migraines Past Surgical History: Alcohol Use: None Drug Use: None Adult General Chief Complaint Chief Complaint: HEADACHE HPI HPI Patient is a 33 year old female patient with history of migraine headaches, hypertension, who presents to the ED today complaining over 10 out of 10 right- sided migraine headache for 3 days. Patient is also complaining of nausea with no vomiting and photophobia. She reports this migraine is consistent with her regular migraines. Review of Systems Review of Systems Constitutional: Denies fever or chills [] Eyes: Denies change in visual acuity, redness, or eye pain [] HENT: Denies nasal congestion or sore throat [] Respiratory: Denies cough or shortness of breath [] Cardiovascular: No additional information not addressed in HPI [] GI: Denies abdominal pain, nausea, vomiting, bloody stools or diarrhea [] : Denies dysuria or hematuria [] Musculoskeletal: Denies back pain or joint pain [] Integument: Denies rash or skin lesions [] Neurologic: Reports migraine headache, denies focal weakness or sensory changes [] All other systems were reviewed and found to be within normal limits, except as documented in this note. Current Medications Current Medications Current Medications Medications (Trade) Dose Ordered Sig/Rosa Maria Start Time Stop Time Status Last Admin Dose Admin Cyclobenzaprine HCl (Flexeril) 10 mg 1X ONCE 02/13/19 14:15 02/13/19 14:16 Ondansetron HCl (Zofran Odt) 4 mg 1X ONCE 02/13/19 14:15 02/13/19 14:16 Sumatriptan Succinate (Imitrex) 25 mg 1X ONCE 02/13/19 14:15 02/13/19 14:16 Allergies Allergies Allergies Coded Allergies Type Severity Reaction Last Updated Verified Penicillins Allergy Intermediate 07/04/14 No benzonatate Allergy Intermediate "i will throw up" 04/03/15 Yes prednisone Allergy Intermediate Nausea and Vomiting 04/03/15 No Physical Exam Physical Exam Constitutional: Well developed, well nourished, no acute distress, non-toxic appearance. [] HENT: Normocephalic, atraumatic, bilateral external ears normal, oropharynx moist, no oral exudates, nose normal. [] Eyes: PERRLA, EOMI, conjunctiva normal, no discharge. [] Neck: Normal range of motion, no tenderness, supple, no stridor. [] Cardiovascular:Heart rate regular rhythm, no murmur [] Lungs & Thorax: Bilateral breath sounds clear to auscultation [] Abdomen: Bowel sounds normal, soft, no tenderness, no masses, no pulsatile masses. [] Skin: Warm, dry, no erythema, no rash. [] Back: No tenderness, no CVA tenderness. [] Extremities: No tenderness, no cyanosis, no clubbing, ROM intact, no edema. [] Neurologic: Alert and oriented X 3, normal motor function, normal sensory function, no focal deficits noted. Cranial nerves II through XII intact Psychologic: Affect normal, judgement normal, mood normal. [] Current Patient Data Vital Signs Vital Signs Date Time Temp Pulse Resp B/P (MAP) Pulse Ox O2 Delivery O2 Flow Rate FiO2 02/13/19 12:40 97.9 73 16 137/92 (107) 99 Room Air 97.9 EKG EKG [] Radiology/Procedures Radiology/Procedures [] Course & Med Decision Making Course & Med Decision Making Pertinent Labs and Imaging studies reviewed. (See chart for details) This is a 33-year-old female patient presenting to the ED today with a 3 day episode of migraine headache, has history of the same. Will be discharged with Imitrex. Dionicio Disclaimer Dragrené Disclaimer This electronic medical record was generated, in whole or in part, using a voice recognition dictation system. Departure Departure Impression: Primary Impression: Migraine headache Disposition: 01 HOME, SELF-CARE Condition: STABLE Referrals: NO PCP (PCP) BRIANNA VALDEZ MD follow up in 1-2 weeks Patient Instructions: Migraine Headache Additional Instructions: You were evaluated for migraine headache, consider following up with your primary care doctor or the provided doctor, take the prescribed medication as ordered. Scripts Prochlorperazine Maleate (Compazine) 10 Mg Tablet 1 TAB PO Q8HRS for 7 Days, #21 TAB 0 Refills Prov: CIARAN PAGE APRN 02/13/19 Sumatriptan Succinate (IMITREX) 50 Mg Tablet 1 TAB PO UD, #9 TAB 1 Refill Take 1 tablet at the onset of migraine headache and repeat in 2 hours if symptoms persist. Do not take more than 2 tablets in 24 hours. Prov: CIARAN PAGE APRN 02/13/19 Problem Qualifiers Primary Impression: Migraine headache Migraine type: unspecified Status migrainosus presence: without status migrainosus Intractability: not intractable Qualified Codes: G43.909 - Migraine, unspecified, not intractable, without status migrainosus CIARAN PAGE APRN Feb 13, 2019 13:57
[2019-02-13] MEDS: ONDANSETRON ODT 4 MG TAB.RAPDIS. PO ONE (14:10)
[2019-02-13] MEDS: SUMAtriptan SUCCINATE 25 MG TABLET PO ONE (14:11)
[2019-02-13] MEDS: CYCLOBENZAPRINE 10 MG TABLET. PO ONE (14:11)
== END 2019-02-13 14:13 | disposition home or self-care (01) ==
LOC: ER 12:18
DX: G43.909 Migraine, unspecified, not intractable, without status migrainosus (principal); I10 Essential (primary) hypertension; J45.909 Unspecified asthma, uncomplicated; Z88.0 Allergy status to penicillin; Z88.5 Allergy status to narcotic agent; Z88.8 Allergy status to other drugs, medicaments and biological substances
CPT/HCPCS: 99284; Q0162

== ENCOUNTER 2019-03-09 00:26 | Emergency (ER) | payer OTHER ==
[~2019-03-09 00:26] MED LIST changes: -CETI10TA22 PO; +CETI10TA24 PO; +PROC10TA57 PO; +SUMA50TA3 PO
[2019-03-09 00:35] VITALS: BP 174/101
[2019-03-09] MEDS ORDERED: Percogesic PO (00:44)
[2019-03-09] MEDS ORDERED: CLIN150C14 PO (00:44)
--- NOTE | 2019-03-09 00:44 | PHYS DOC ---
Past Medical History Past Medical History: Asthma, Hypertension, Migraines Past Surgical History: Alcohol Use: None Drug Use: None Adult General Chief Complaint Chief Complaint: DENTAL PROBLEM HPI HPI Patient is a 33 year old with history of hypertension, migraine headaches, asthma who presents with complaint of throat and ear pain. Patient complaining of right upper jaw and tooth pain for the last 2 days without injury and rated her pain 10 over 10 and states the pain going to the right ear. Patient denies fever and chills and history of the same problem. Patient states she took and the without change of her pain. Review of Systems Review of Systems Constitutional: Denies fever or chills [] Eyes: Denies change in visual acuity, redness, or eye pain [] HENT: Denies nasal congestion or sore throat [] Respiratory: Denies cough or shortness of breath [] Cardiovascular: No additional information not addressed in HPI [] GI: Denies abdominal pain, nausea, vomiting, bloody stools or diarrhea [] : Denies dysuria or hematuria [] Musculoskeletal: Denies back pain or joint pain [] Integument: Denies rash or skin lesions [] Neurologic: Denies headache, focal weakness or sensory changes [] Endocrine: Denies polyuria or polydipsia [] All other systems were reviewed and found to be within normal limits, except as documented in this note. Allergies Allergies Allergies Coded Allergies Type Severity Reaction Last Updated Verified Penicillins Allergy Intermediate 07/04/14 No benzonatate Allergy Intermediate "i will throw up" 04/03/15 Yes prednisone Allergy Intermediate Nausea and Vomiting 04/03/15 No Physical Exam Physical Exam Constitutional: Well developed, well nourished, mild distress, non-toxic appeara nce, anxious. [] HENT: Normocephalic, atraumatic, bilateral external ears normal, oropharynx moist, no oral exudates, nose normal, no gum or dental tenderness. [] Eyes: PERRLA, EOMI, conjunctiva normal, no discharge. [] Neck: Normal range of motion, no tenderness, supple, no stridor. [] Cardiovascular:Heart rate regular rhythm, no murmur [] Lungs & Thorax: Bilateral breath sounds clear to auscultation [] Neurologic: Alert and oriented X 3, normal motor function, normal sensory function, no focal deficits noted. [] Psychologic: Affect anxious judgement normal, mood normal. [] Current Patient Data Vital Signs Vital Signs Date Time Temp Pulse Resp B/P (MAP) Pulse Ox O2 Delivery O2 Flow Rate FiO2 03/09/19 00:35 97.7 92 22 174/101 (125) 98 Room Air 97.7 EKG EKG [] Radiology/Procedures Radiology/Procedures [] Course & Med Decision Making Course & Med Decision Making Evaluation of patient in ER showed 33-year-old male patient with complaining of dental pain and earache for 2 days and rated her pain 10 over 10. Patient was very anxious with exaggerating condition without dental or gum tenderness or abnormalities on exam. Patient didn't want to have any pain patient in ER and wanted prescription for medication for home. I've spoken with the patient and/or caregivers. I've explained the patient's condition, diagnosis and treatment plan based on information available to me at this time. I've answered the patient's and/or caregivers questions and addressed any concerns. The patient and/or caregivers have a good understanding the patient's diagnosis, condition and treatment plan as can be expected at this point. Vital signs have been stabilized. The patient's condition is stable for discharge from the emergency department. The patient will pursue further outpatient evaluation with her primary care provider or other designated consulting physician as outlined in the discharge instructions. Patient and/or caregivers are agreeable to this plan of care and follow-up instructions have been explained in detail. The patient and/or caregivers have received these instructions in written format and expressed understanding of these discharge instructions. The patient and her caregivers are aware that if any significant change in condition or worsening of symptoms should prompt him to immediately return to this of the closest emergency department. If an emergent department is not readily available I would encourage him to call 911. Dionicio Disclaimer Dionicio Disclaimer This electronic medical record was generated, in whole or in part, using a voice recognition dictation system. Departure Departure Impression: Primary Impression: Dentalgia Disposition: HOME, SELF-CARE (at 0041) Condition: STABLE Referrals: NO PCP (PCP) Patient Instructions: Toothache-Brief Additional Instructions: Drink plenty of liquids Follow-up with your dentist in 3-5 days Return to ER if not getting better Scripts Clindamycin Hcl (CLINDAMYCIN HCL) 150 Mg Capsule 1 CAP PO QID, #28 CAP Prov: LISA ZAPATA MD 03/09/19 [Percogesic] No Conflict Check 1 TAB PO QID PRN for PAIN, #14 Prov: LISA ZAPATA MD 03/09/19 LISA ZAPATA MD Mar 09, 2019 00:44
== END 2019-03-09 00:45 | disposition home or self-care (01) ==
LOC: ER 00:26
DX: K08.89 Other specified disorders of teeth and supporting structures (principal); R68.84 Jaw pain; G43.909 Migraine, unspecified, not intractable, without status migrainosus; I10 Essential (primary) hypertension; J45.909 Unspecified asthma, uncomplicated; Z88.0 Allergy status to penicillin; Z88.5 Allergy status to narcotic agent; Z88.8 Allergy status to other drugs, medicaments and biological substances
CPT/HCPCS: 99283

== ENCOUNTER 2019-05-01 05:47 | Observation (INO) | payer OTHER ==
[2019-05-01] VITALS (9 sets, daily range): BP systolic 104–141; BP diastolic 61–96
[~2019-05-01] VITALS: Ht 132.1 cm; Wt 110.0 kg
[~2019-05-01 05:47] MED LIST changes: +CLIN150C14 PO; +Percogesic PO
[2019-05-01 06:28] LABS: BASO # 0.1 x10^3/uL (0.0-0.2); BASO % 1 % (0-3); EOS # 0.3 x10^3/uL (0.0-0.7); EOS % 4 % (0-3); HEMATOCRIT 37.3 % (36.0-47.0); HEMOGLOBIN 12.8 g/dL (12.0-15.5); LYMPH # 2.9 x10^3/uL (1.0-4.8); LYMPH % 44 % (24-48); MEAN CORPUSCULAR HEMOGLOBIN 32 pg (25-35); MEAN CORPUSCULAR HGB CONC 34 g/dL (31-37); MEAN CORPUSCULAR VOLUME 93 fL (79-100); MONO # 0.8 x10^3/uL (0.0-1.1); MONO % 12 % (0-9); NEUT # 2.5 x10^3/uL (1.8-7.7); NEUT % 39 % (31-73); PLATELET COUNT 270 x10^3/uL (140-400); RED BLOOD COUNT 4.02 x10^6/uL (3.50-5.40); RED CELL DISTRIBUTION WIDTH 16.7 % (11.5-14.5); WHITE BLOOD COUNT 6.5 x10^3/uL (4.0-11.0)
[2019-05-01 06:28] LABS: BILIRUBIN,URINE NEGATIVE (NEG); CLARITY,URINE CLEAR; COLOR,URINE YELLOW; NITRITE,URINE NEGATIVE (NEG); PROTEIN,URINE NEGATIVE (NEG-TRACE); UROBILINOGEN,URINE 0.2 mg/dL (0.2 mg/dL)
--- NOTE | 2019-05-01 06:28 | PHYS DOC ---
Past Medical History Past Medical History: Asthma, Hypertension, Migraines Past Surgical History: Smoking Status: Current Every Day Smoker Alcohol Use: None Drug Use: None Adult General Chief Complaint Chief Complaint: ABDOMINAL PAIN [facility] HPI Patient is a 33 year old female with history of asthma, hypertension, migraines, morbid obesity, frequent emergency room visits who presents with complaint of abdominal pain. Patient complaining of sudden onset of right-sided abdominal pain that started about 30 minutes prior to arrival to ER as a constant pain with radiation to her back and right upper quadrant as a constant pain and rated her pain 10 over 10. Patient denies nausea, vomiting, diarrhea, constipation, urinary symptoms, fever and chills, history of the same problem. Patient states she had her menstruation about 5 weeks ago and is not sure about . Review of Systems Review of Systems Constitutional: Denies fever or chills [] Eyes: Denies change in visual acuity, redness, or eye pain [] HENT: Denies nasal congestion or sore throat [] Respiratory: Denies cough or shortness of breath [] Cardiovascular: No additional information not addressed in HPI [] GI: Reports abdominal pain, denies nausea, vomiting, bloody stools or diarrhea [] : Denies dysuria or hematuria [] Musculoskeletal: Denies back pain or joint pain [] Integument: Denies rash or skin lesions [] Neurologic: Denies headache, focal weakness or sensory changes [] Endocrine: Denies polyuria or polydipsia [] All other systems were reviewed and found to be within normal limits, except as documented in this note. Current Medications Current Medications Current Medications Medications (Trade) Dose Ordered Sig/Rosa Maria Start Time Stop Time Status Last Admin Dose Admin Sodium Chloride 1,000 ml @ 1,000 mls/hr Q1H 05/01/19 06:30 05/01/19 07:29 05/01/19 06:16 1,000 MLS/HR Allergies Allergies Allergies Coded Allergies Type Severity Reaction Last Updated Verified Penicillins Allergy Intermediate 07/04/14 No benzonatate Allergy Intermediate "i will throw up" 04/03/15 Yes prednisone Allergy Intermediate Nausea and Vomiting 04/03/15 No Physical Exam Physical Exam Constitutional: Well developed, well nourished, mild distress, non-toxic appearance. [] HENT: Normocephalic, atraumatic. Eyes: PERRLA, EOMI, conjunctiva normal, no discharge. [] Neck: Normal range of motion, no tenderness, supple, no stridor. [] Cardiovascular:Heart rate regular rhythm, no murmur [] Lungs & Thorax: Bilateral breath sounds clear to auscultation [] Abdomen: Right-sided abdominal guarding, bowel sounds normal, soft, no tenderness, no masses, no pulsatile masses. [] Skin: Warm, dry, no erythema, no rash. [] Back: No tenderness, no CVA tenderness. [] Extremities: No tenderness, no cyanosis, no clubbing, ROM intact, no edema. [] Neurologic: Alert and oriented X 3, no focal deficits noted. [] Psychologic: Affect anxious, judgement normal, mood normal. [] Current Patient Data Vital Signs Vital Signs Date Time Temp Pulse Resp B/P (MAP) Pulse Ox O2 Delivery O2 Flow Rate FiO2 05/01/19 06:00 98.2 78 17 175/81 (112) 100 Room Air 98.2 Lab Values Laboratory Tests Test 05/01/19 05:55 POC Urine HCG, Qualitative Hcg positive (Negative) EKG EKG [] Radiology/Procedures Radiology/Procedures [] Course & Med Decision Making Course & Med Decision Making Pertinent Labs pending. Evaluation of patient in ER showed 33-year-old female patient with complaining of sudden onset of right-sided abdominal pain prior to arrival to ER. Patient had guarding of right side of abdomen. Vital signs was normal. Patient had positive point of care test and a test is pending. Sign out given to at 0630 for further evaluation and final disposition. Discussed current findings and plan with patient and family, who acknowledge understanding and agreement.[] Dragon Disclaimer Dragon Disclaimer This electronic medical record was generated, in whole or in part, using a voice recognition dictation system. Departure Departure Referrals: NO PCP (PCP) LISA ZAPATA MD May 01, 2019 06:28
[2019-05-01] MEDS ORDERED: IV NORMAL SALINE 1000ML BAG 1,000 ML IV SCH ×2 (06:30→08:30)
[2019-05-01 06:32] LABS: CALCIUM 8.6 mg/dL (8.5-10.1); CREATININE 0.9 mg/dL (0.6-1.0); GFR 86.2; POTASSIUM 3.5 mmol/L (3.5-5.1)
[2019-05-01 06:32] LABS: BARBITURATES NEG (NEG); BENZODIAZEPINES NEG (NEG); CANNABINOIDS NEG (NEG); COCAINE NEG (NEG); METHADONE NEG (NEG); OPIATES NEG (NEG); PHENCYCLIDINE NEG (NEG)
[2019-05-01 06:36] LABS: AMPHETAMINE/METHAMPHETAMINE NEG (NEG)
[2019-05-01 06:37] LABS: ALBUMIN 3.8 g/dL (3.4-5.0); TOTAL BILIRUBIN 0.2 mg/dL (0.2-1.0); TOTAL PROTEIN 7.5 g/dL (6.4-8.2)
[2019-05-01 06:48] LABS: BACTERIA,URINE FEW /HPF (0-FEW); RBC,URINE 0 /HPF (0-2); SQUAMOUS EPITHELIAL CELL,UR MOD /LPF; WBC,URINE 0 /HPF (0-4)
--- NOTE | 2019-05-01 07:36 | RAD ---
EXAM: 1. OBSTETRIC ULTRASOUND, <14 WEEKS. 2. RIGHT RENAL ULTRASOUND. HISTORY: Right abdominal/pelvic pain in . COMPARISON: 02/07/2018. FINDINGS: Sonographic evaluation of the pelvis was performed transabdominally. The patient declined a transvaginal study. The uterus is anteverted and measures 15.1 x 9.5 x 8.8 cm. No intrauterine gestational sac is identified. The uterus is enlarged by multiple fibroids which measure up to 7.1 x 6.3 cm in the posterior myometrial position. These distort the endometrial stripe which is approximately 9 mm in thickness. The right ovary measures 3.1 x 2.8 x 2.7 cm. The left ovary is obscured by bowel gas and body habitus. There is normal Doppler flow on the right. There is no adnexal mass. There is no significant free fluid. Sonographic evaluation of the right kidney, retroperitoneum and bladder was also performed. The right kidney measures 11.1 cm [id number]. Cortical thickness and echogenicity are preserved. There is no hydronephrosis. The bladder is unremarkable without clear wall thickening. Prevoid bladder volume is 153 mL. The proximal abdominal aorta is unremarkable measuring 2.2 cm. It is obscured by bowel gas more distally. IMPRESSION: 1. No intrauterine gestation is identified. Correlate with quantitative beta hCG to determine if this is appropriate. Ongoing follow-up of quantitative beta hCG is recommended to exclude an ectopic gestation. 2. Multiple uterine fibroids measure up to 7.1 cm posteriorly. 3. Unremarkable right ovary. The left ovary is obscured currently. 4. Unremarkable examination of the right kidney. No hydronephrosis. Electronically signed by: Dann Oscar MD (05/01/2019 7:34 AM) [id number]
[2019-05-01] MEDS ORDERED: ONDANSETRON PF 4 MG/2 ML VIAL. IV PRN ×2 (08:30→11:30)
[2019-05-01] MEDS ORDERED: MORPHINE SULFATE 2 MG/ML VIAL. IV PRN ×2 (08:30→12:00)
--- NOTE | 2019-05-01 08:40 | PDOC1 ---
History and Physical Date of Admission Date of Admission DATE: 05/01/19 TIME: 08:37 Identification/Chief Complaint Chief Complaint ABd pain Source Source: Patient History of Present Illness History of Present Illness 33 y/o @ 7 wks gestation presented to ED with c/o RLQ pain that continued to worsen. Pelvic sono indicated no IUP with HCG > 4k. She has h/o c/s. No vaginal bleeding. Past Surgical History Past Surgical History: Current Medications Current Medications Current Medications Sodium Chloride 1,000 ml @ 1,000 mls/hr Q1H IV Last administered on 05/01/19at 06:16; Start 05/01/19 at 06:30; Stop 05/01/19 at 07:29; Status DC Ondansetron HCl (Zofran) 4 mg PRN Q8HRS PRN IV NAUSEA/VOMITING; Start 05/01/19 at 08:30; Stop 05/02/19 at 08:29 Morphine Sulfate (Morphine Sulfate) 2 mg PRN Q2HR PRN IV PAIN; Start 05/01/19 at 08:30; Stop 05/02/19 at 08:29 Sodium Chloride 1,000 ml @ 100 mls/hr Q10H IV ; Start 05/01/19 at 08:30; Stop 05/02/19 at 08:29 Active Scripts Active Clindamycin Hcl 150 Mg Capsule 1 Cap PO QID [Percogesic] 1 Tab PO QID PRN Compazine (Prochlorperazine Maleate) 10 Mg Tablet 1 Tab PO Q8HRS 7 Days Imitrex (Sumatriptan Succinate) 50 Mg Tablet 1 Tab PO UD Take 1 tablet at the onset of migraine headache and repeat in 2 hours if symptoms persist. Do not take more than 2 tablets in 24 hours. Zithromax (Azithromycin) 250 Mg Tablet 1 Pkg PO UD Hydrocodone-Chlorpheniram Susp (Hydrocodone/Chlorphen Polis) 5 Ml Mary Ann.er.12h 5 Ml PO PRN Q12HR PRN Proair Hfa Inhaler (Albuterol Sulfate) 8.5 Gm Hfa.aer.ad 2 Puff INH PRN Q6HRS PRN Proair Hfa Inhaler (Albuterol Sulfate) 8.5 Gm Hfa.aer.ad 2 Puff INH PRN Q6HRS PRN Zithromax (Azithromycin) 250 Mg Tablet 1 Pkg PO UD Tussionex Pennkinetic Susp (Hydrocodone/Chlorphen P-Stirex) 115 Ml Mary Ann.er.12h 5 Ml PO BID Tramadol Hcl 50 Mg Tablet 50 Mg PO Q6HRS PRN Zofran (Ondansetron Hcl) 4 Mg Tablet 4 Mg PO PRN TID PRN nausea/vomiting Lisinopril 20 Mg Tablet 1 Tab PO DAILY [lidoderm 5% patch] 1 Patch TOP PRN apply to affected areas for 12 hours, then off for 12 hours Ventolin Hfa Inhaler (Albuterol Sulfate) 18 Gm Hfa.aer.ad 2 Puff INH Q4HRS PRN Cyclobenzaprine Hcl 5 Mg Tablet 5 Mg PO PRN TID PRN Ibuprofen 600 Mg Tablet 600 Mg PO PRN Q6HRS PRN take with food or milk [place] 5-325 Tablet (Acetaminophen/Hydrocodone Bitart) 1 Each Tablet 1 Tab PO PRN Q6HRS PRN Ibuprofen 800 Mg Tablet 800 Mg PO PRN Q8HRS PRN Bactrim Ds Tablet (Sulfamethoxazole/Trimethoprim) 1 Each Tablet 1 Tab PO BID Naproxen 500 Mg Tablet 1 Tab PO BID Cyclobenzaprine Hcl 10 Mg Tablet 1 Tab PO TID Ibuprofen 800 Mg Tablet 800 Mg PO PRN Q6HRS PRN Tussionex Pennkinetic Susp (Hydrocodone/Chlorphen Polis) 480 Ml Mary Ann.er.12h 5 Ml PO BID Bactrim Ds Tablet (Sulfamethoxazole/Trimethoprim) 1 Each Tablet 1 Each PO BID Lisinopril 40 Mg Tablet 1 Tab PO DAILY Triamcinolone Acetonide 0.1% Cream (Triamcinolone Acetonide) 15 Gm Cream..g. 1 Addis TP BID Proair Respiclick (Albuterol Sulfate) 90 Mcg Aer.pow.ba 1 Puff IH PRN Q6HRS PRN Hydroxyzine Hcl 25 Mg Tablet 1 Tab PO TID Zyrtec (Cetirizine Hcl) 10 Mg Tablet 1 Tab PO DAILY Reported No Known Medications Prior To Admisstion (Info) Each 1 Each MC Allergies Allergies: Coded Allergies: Penicillins (Unverified Allergy, Intermediate, 07/04/14) benzonatate (Verified Adverse Reaction, Intermediate, "i will throw up", 05/01/19) prednisone (Unverified Adverse Reaction, Intermediate, Nausea and Vomiting, 05/01/19) "It makes me vomit" ROS General: No: Chills, Night Sweats, Fatigue, Malaise, Appetite, Other PSYCHOLOGICAL ROS: YES: Anxiety; No: Behavioral Disorder, Concentration difficultie, Decreased libido, Depression, Disorientation, Hallucinations, Hostility, Irritablity, Memory difficulties, Mood Swings, Obsessive thoughts, Physical abuse, Sexual abuse, Sleep disturbances, Suicidal ideation, Other Eyes: No Blurry vision, No Decreased vision, No Double vision, No Dry eyes, No Excessive tearing, No Eye Pain, No Itchy Eyes, No Loss of vision, No Photophobia, No Scotomata, No Uses contacts, No Uses glasses, No Other HEENT: No: Heacaches, Visual Changes, Hearing change, Nasal congestion, Nasal discharge, Oral lesions, Sinus pain, Sore Throat, Epistaxis, Sneezing, Snoring, Tinnitus, Vertigo, Vocal changes, Other ALLERGY AND IMMUNOLOGY: No: Hives, Insect Bite Sensitivity, Itchy/Watery Eyes, Nasal Congestion, Post Nasal Drip, Seasonal Allergies, Other Hematological and Lymphatic: No: Bleeding Problems, Blood Clots, Blood Transfusions, Brusing, Night Sweats, Pallor, Swollen Lymph Nodes, Other ENDOCRINE: No: Breast Changes, Galactorrhea, Hair Pattern Changes, Hot Flashes, Malaise/lethargy, Mood Swings, Palpitations, Polydipsia/polyuria, Skin Changes, Temperature Intolerance, Unexpected Weight Changes, Other Breast: No New/Changing Breast Lumps, No Nipple changes, No Nipple discharge, No Other Respiratory: No: Cough, Hemoptysis, Orthopnea, Pleuritic Pain, Shortness of breath, SOB with excertion, Sputum Changes, Stridor, Tachypnea, Wheezing, Other Cardiovascular: No Chest Pain, No Palpitations, No Orthopnea, No Paroxysmal Noc. Dyspnea, No Edema, No Lt Headedness, No Other Gastrointestinal: Yes Abdominal Pain Genitourinary: No Dysuria, No Frequency, No Incontinence, No Hematuria, No Retention, No Discharge, No Urgency, No Pain, No Flank Pain, No Other, No , No , No , No , No , No , No Skin: No Dry Skin, No Eczema, No Hair Changes, No Lumps, No Mole Changes, No Mottling, No Nail Changes, No Pruritus, No Rash, No Skin Lesion Changes, No Other, No Acne Physical Exam General: Alert, Oriented X3, Cooperative HEENT: Atraumatic Lungs: Clear to auscultation Heart: S1S2 Abdomen: Normal bowel sounds, Soft, No tenderness PELVIC: Examination not indicated Psych/Mental Status: Mental status NL Vitals Vitals Vital Signs Date Time Temp Pulse Resp B/P (MAP) Pulse Ox O2 Delivery O2 Flow Rate FiO2 05/01/19 06:41 90 23 150/101 (117) 100 Room Air 05/01/19 06:00 98.2 98.2 Labs Labs Laboratory Tests Test 05/01/19 05:50 05/01/19 05:55 05/01/19 06:02 Urine Collection Type Unknown Urine Color Yellow Urine Clarity Clear Urine pH 6.0 (<5.0-8.0) Urine Specific [place] 1.015 (1.000-1.030) Urine Protein Negative mg/dL (NEG-TRACE) Urine Glucose (UA) Negative mg/dL (NEG) Urine Ketones (Stick) Negative mg/dL (NEG) Urine Blood Trace (NEG) Urine Nitrite Negative (NEG) Urine Bilirubin Negative (NEG) Urine Urobilinogen Dipstick 0.2 mg/dL (0.2 mg/dL) Urine Leukocyte Esterase Negative (NEG) Urine RBC 0 /HPF (0-2) Urine WBC 0 /HPF (0-4) Urine Squamous Epithelial Cells Mod /LPF Urine Bacteria Few /HPF (0-FEW) Urine Mucus Slight /LPF Urine Opiates Screen Neg (NEG) Urine Methadone Screen Neg (NEG) Urine Barbiturates Neg (NEG) Urine Phencyclidine Screen Neg (NEG) Urine Amphetamine/Methamphetamine Neg (NEG) Urine Benzodiazepines Screen Neg (NEG) Urine Cocaine Screen Neg (NEG) Urine Cannabinoids Screen Neg (NEG) Urine Ethyl Alcohol Neg (NEG) Bedside Urine HCG, Qualitative Hcg positive (Negative) White Blood Count 6.5 x10^3/uL (4.0-11.0) Red Blood Count 4.02 x10^6/uL (3.50-5.40) Hemoglobin 12.8 g/dL (12.0-15.5) Hematocrit 37.3 % (36.0-47.0) Mean Corpuscular Volume 93 fL (79-100) Mean Corpuscular Hemoglobin 32 pg (25-35) Mean Corpuscular Hemoglobin Concent 34 g/dL (31-37) Red Cell Distribution Width 16.7 % (11.5-14.5) Platelet Count 270 x10^3/uL (140-400) Neutrophils (%) (Auto) 39 % (31-73) Lymphocytes (%) (Auto) 44 % (24-48) Monocytes (%) (Auto) 12 % (0-9) Eosinophils (%) (Auto) 4 % (0-3) Basophils (%) (Auto) 1 % (0-3) Neutrophils # (Auto) 2.5 x10^3/uL (1.8-7.7) Lymphocytes # (Auto) 2.9 x10^3/uL (1.0-4.8) Monocytes # (Auto) 0.8 x10^3/uL (0.0-1.1) Eosinophils # (Auto) 0.3 x10^3/uL (0.0-0.7) Basophils # (Auto) 0.1 x10^3/uL (0.0-0.2) Maternal Serum HCG Beta Subunit 4244 mIU/mL (0-5) Sodium Level 138 mmol/L (136-145) Potassium Level 3.5 mmol/L (3.5-5.1) Chloride Level 104 mmol/L (98-107) Carbon Dioxide Level 25 mmol/L (21-32) Anion Gap 9 (6-14) Blood Urea Nitrogen 4 mg/dL (7-20) Creatinine 0.9 mg/dL (0.6-1.0) Estimated GFR (Cockcroft-Gault) 86.2 BUN/Creatinine Ratio 4 (6-20) Glucose Level 90 mg/dL (70-99) Calcium Level 8.6 mg/dL (8.5-10.1) Total Bilirubin 0.2 mg/dL (0.2-1.0) Aspartate Amino Transf (AST/SGOT) 16 U/L (15-37) Alanine Aminotransferase (ALT/SGPT) 22 U/L (14-59) Alkaline Phosphatase 59 U/L (46-116) Total Protein 7.5 g/dL (6.4-8.2) Albumin 3.8 g/dL (3.4-5.0) Albumin/Globulin Ratio 1.0 (1.0-1.7) Lipase 90 U/L (73-393) Laboratory Tests Test 05/01/19 05:50 05/01/19 05:55 05/01/19 06:02 Urine Collection Type Unknown Urine Color Yellow Urine Clarity Clear Urine pH 6.0 (<5.0-8.0) Urine Specific [place] 1.015 (1.000-1.030) Urine Protein Negative mg/dL (NEG-TRACE) Urine Glucose (UA) Negative mg/dL (NEG) Urine Ketones (Stick) Negative mg/dL (NEG) Urine Blood Trace (NEG) Urine Nitrite Negative (NEG) Urine Bilirubin Negative (NEG) Urine Urobilinogen Dipstick 0.2 mg/dL (0.2 mg/dL) Urine Leukocyte Esterase Negative (NEG) Urine RBC 0 /HPF (0-2) Urine WBC 0 /HPF (0-4) Urine Squamous Epithelial Cells Mod /LPF Urine Bacteria Few /HPF (0-FEW) Urine Mucus Slight /LPF Urine Opiates Screen Neg (NEG) Urine Methadone Screen Neg (NEG) Urine Barbiturates Neg (NEG) Urine Phencyclidine Screen Neg (NEG) Urine Amphetamine/Methamphetamine Neg (NEG) Urine Benzodiazepines Screen Neg (NEG) Urine Cocaine Screen Neg (NEG) Urine Cannabinoids Screen Neg (NEG) Urine Ethyl Alcohol Neg (NEG) Bedside Urine HCG, Qualitative Hcg positive (Negative) White Blood Count 6.5 x10^3/uL (4.0-11.0) Red Blood Count 4.02 x10^6/uL (3.50-5.40) Hemoglobin 12.8 g/dL (12.0-15.5) Hematocrit 37.3 % (36.0-47.0) Mean Corpuscular Volume 93 fL (79-100) Mean Corpuscular Hemoglobin 32 pg (25-35) Mean Corpuscular Hemoglobin Concent 34 g/dL (31-37) Red Cell Distribution Width 16.7 % (11.5-14.5) Platelet Count 270 x10^3/uL (140-400) Neutrophils (%) (Auto) 39 % (31-73) Lymphocytes (%) (Auto) 44 % (24-48) Monocytes (%) (Auto) 12 % (0-9) Eosinophils (%) (Auto) 4 % (0-3) Basophils (%) (Auto) 1 % (0-3) Neutrophils # (Auto) 2.5 x10^3/uL (1.8-7.7) Lymphocytes # (Auto) 2.9 x10^3/uL (1.0-4.8) Monocytes # (Auto) 0.8 x10^3/uL (0.0-1.1) Eosinophils # (Auto) 0.3 x10^3/uL (0.0-0.7) Basophils # (Auto) 0.1 x10^3/uL (0.0-0.2) Maternal Serum HCG Beta Subunit 4244 mIU/mL (0-5) Sodium Level 138 mmol/L (136-145) Potassium Level 3.5 mmol/L (3.5-5.1) Chloride Level 104 mmol/L (98-107) Carbon Dioxide Level 25 mmol/L (21-32) Anion Gap 9 (6-14) Blood Urea Nitrogen 4 mg/dL (7-20) Creatinine 0.9 mg/dL (0.6-1.0) Estimated GFR (Cockcroft-Gault) 86.2 BUN/Creatinine Ratio 4 (6-20) Glucose Level 90 mg/dL (70-99) Calcium Level 8.6 mg/dL (8.5-10.1) Total Bilirubin 0.2 mg/dL (0.2-1.0) Aspartate Amino Transf (AST/SGOT) 16 U/L (15-37) Alanine Aminotransferase (ALT/SGPT) 22 U/L (14-59) Alkaline Phosphatase 59 U/L (46-116) Total Protein 7.5 g/dL (6.4-8.2) Albumin 3.8 g/dL (3.4-5.0) Albumin/Globulin Ratio 1.0 (1.0-1.7) Lipase 90 U/L (73-393) VTE Prophylaxis Ordered VTE Prophylaxis Devices: Yes VTE Pharmacological Prophylaxi: No Assessment/Plan Assessment/Plan A: Ectopic P: LPSC salpingectomy with possible oophorectomy for ectopic . YO HITCHCOCK Jr, MD May 01, 2019 08:40
[2019-05-01] MEDS ORDERED: ROCURONIUM 50 MG/5 ML VIAL. ONE (09:32)
[2019-05-01] MEDS ORDERED: ONDANSETRON PF 4 MG/2 ML VIAL. ONE (09:32)
[2019-05-01] MEDS ORDERED: DEXAMETHASONE SOD PHOS 4 MG/ML VIAL ONE (09:32)
[2019-05-01] MEDS ORDERED: PROPOFOL 20 ML IV ONE (09:32)
[2019-05-01] MEDS ORDERED: LIDOCAINE 2% PF 5 ML VIAL. ONE (09:32)
[2019-05-01] MEDS ORDERED: MIDAZOLAM HCL/PF 2 MG/2 ML VIAL. ONE (09:33)
[2019-05-01] MEDS ORDERED: fentaNYL PF VIAL 100 MCG/2 ML VIAL ONE ×3 (09:33→12:56)
--- NOTE | 2019-05-01 09:46 | NUR ---
OR staff here to take pt to surgery,
[2019-05-01] MEDS ORDERED: BUPIVACAINE-EPI 0.25%-1:200000 MPF 30 ML VIAL. ONE (10:20)
[2019-05-01] MEDS ORDERED: SURGICEL HEMOSTAT 4X8 EACH. ONE (10:21)
[2019-05-01] MEDS ORDERED: ceFAZolin SODIUM IV Push 1 GM VIAL. IVP ONE (10:47)
[2019-05-01] MEDS ORDERED: NEOSTIGMINE METHYLSULFATE 5 MG/5 ML SYRINGE. ONE ×2 (10:50→10:53)
[2019-05-01] MEDS ORDERED: GLYCOPYRROLATE 1 MG/5 ML VIAL. ONE (10:51)
[2019-05-01] MEDS ORDERED: SEVOFLURANE 31 TO 60 MINUTES. IH ONE (10:54)
--- NOTE | 2019-05-01 11:25 | PDOC ---
BRIEF OPERATIVE NOTE Date: May 01, 2019 Pre-Op Diagnosis Ectopic Post-Op Diagnosis Right Ectopic Procedure Performed [facility] Right Salpingectomy Surgeon Dr. Corbett Historical Archeologist Tire Sorter: Antonio Anesthesia Type: General Blood Loss 10 ml Specimens Obtained Right fallopian tube with ectopic pregancy Findings enlarged, fibroid uterus with pelvic sidewall adhesions, Right ectopic in fallopian tube. Nml ovaries aleksandra., Left fallopian tube nml with adhesions to sidewall Complications none Operative Note see dictation YO CORBETT Jr, MD May 01, 2019 11:25
[2019-05-01] MEDS ORDERED: CALCIUM CARBONATE 500 MG TAB.CHEW PO PRN (11:30)
[2019-05-01] MEDS ORDERED: ZOLPIDEM 5 MG TABLET. PO PRN (11:30)
[2019-05-01] MEDS ORDERED: 0.9 % SODIUM CHLORIDE 10 ML DISP.SYRIN. IV PRN (11:30)
[2019-05-01] MEDS ORDERED: DEXTROSE 50% 25 GM / 50ML DISP.SYRIN. IV PRN (11:30)
[2019-05-01] MEDS ORDERED: PROCHLORPERAZINE 10 MG/2 ML VIAL. IV PRN ×2 (11:30→12:00)
[2019-05-01] MEDS ORDERED: KETOROLAC 30 MG/ML VIAL. IV PRN (11:30)
[2019-05-01] MEDS ORDERED: diphenhydrAMINE 50 MG/ML VIAL IV PRN (11:30)
[2019-05-01] MEDS ORDERED: oxyCODONE/APAP 5/325 1 TAB TABLET PO PRN (11:30)
[2019-05-01] MEDS ORDERED: SIMETHICONE 80 MG TAB.CHEW PO PRN (11:30)
[2019-05-01] MEDS ORDERED: diphenhydrAMINE HCL 25 MG CAPSULE PO PRN (11:30)
[2019-05-01] MEDS ORDERED: PROCHLORPERAZINE 10 MG/2 ML VIAL. ONE (11:47)
[2019-05-01] MEDS ORDERED: IV RINGERS,LACTATED 1000ML 1,000 ML IV SCH (12:00)
[2019-05-01] MEDS ORDERED: fentaNYL PF VIAL 100 MCG/2 ML VIAL IV PRN (12:00)
[2019-05-01] MEDS: fentaNYL PF VIAL 100 MCG/2 ML VIAL IV PRN ×3 (12:05→13:08)
[2019-05-01] MEDS ORDERED: ceFAZolin SODIUM IV Push 1 GM VIAL. IVP PRN (12:15)
--- NOTE | 2019-05-01 12:28 | OP ---
DATE OF SURGERY: 05/01/2019 PREOPERATIVE DIAGNOSIS: Ectopic . POSTOPERATIVE DIAGNOSIS: Right ectopic . PROCEDURE: Laparoscopic right salpingectomy. SURGEON: Yo Corbett MD INSURANCE SPECIALIST: Antonio. ANESTHESIA: GETA. ESTIMATED BLOOD LOSS: 10 mL. COMPLICATIONS: None. FINDINGS: Enlarged fibroid uterus with pelvic sidewall adhesions, right ectopic in a fallopian tube. Normal ovaries bilaterally. Left fallopian tube was normal with the exception of having adhesions to the sidewall. SUMMARY: A 33-year-old female, who had presented to the Emergency Department with intense right lower quadrant pain that continued to worsen. She was found to have ectopic by way of pelvic sonogram. The patient was counseled on risks, benefits and expectations of laparoscopic salpingectomy for removal of ectopic and voiced a clear understanding to proceed. DESCRIPTION OF PROCEDURE: The patient was taken to surgery suite, placed in dorsal lithotomy position. She was prepped with Betadine solution for vaginal prep and ChloraPrep for abdominal prep. After adequate anesthesia, bivalve speculum was placed vaginally. Anterior lip of the cervix grasped with single-tooth tenaculum. Uterine acorn manipulator was placed. The bivalve speculum was removed. Attention was now placed on abdomen. Small transverse skin incision was made just below the umbilicus. The Veress needle was then placed through the infraumbilical incision site. The abdomen was allowed to insufflate up to 1.5 liters CO2 gas. The Veress needle was then removed. A 5-mm trocar was placed. The scope was positioned. The uterus was visualized. The ovary was enlarged with multiple fibroids. The left ovary appeared normal. The left fallopian tube was normal with the exception of adhesions to the pelvic sidewall. The right adnexa was not identified initially. Two additional incisions made in the left lower quadrant in which 5-mm and 11-mm trocars were placed. With aid of graspers, the right adnexa was explored and some adhesions that were dissected bluntly to visualize the right fallopian tube and ovary. The right ovary appeared normal. The right fallopian tube containing the ectopic with the aid of the EnSeal device, distal salpingectomy was performed. The right fallopian tube that contained the ectopic was removed with the aid of Endobag. The area was hemostatic. Suction irrigation was utilized to verify good hemostasis and a small amount of normal saline was left in the posterior cul-de-sac. The trocars were then removed under direct visualization. The abdomen was allowed to deflate as much as possible along with mechanical manipulation. The 11-mm port site was closed at the fascial layer using 2-0 Vicryl suture in figure-of-8 manner. The 3 incisions were closed at the skin level using 4-0 Vicryl suture in subcuticular manner. A 0.25% Marcaine with epinephrine was injected at each incision site. The uterine acorn manipulator and single-tooth tenaculum were removed. The patient tolerated the procedure well and was taken to recovery room in stable condition. Sponge and needle count correct x 3. YO CORBETT MD DR: QUIN/stevie JOB#: [id number] / [id number]
[2019-05-01] MEDS ORDERED: GABAPENTIN 300 MG CAPSULE. PO SCH (14:00)
[2019-05-01] MEDS ORDERED: HYDR-3164 PO (17:04)
[2019-05-01] MEDS ORDERED: IBUP-1060 PO (17:04)
--- NOTE | 2019-05-01 17:05 | DISCH ---
DISCHARGE INSTRUCTIONS Condition on Discharge Condition on Discharge: Stable Activity After Discharge Activity Instructions for Disc: Activity as tolerated Lifting Instructions after Dis: No heavy lifting Driving Instructions after Dis: Do not drive today Diet after Discharge Diet after Discharge: Regular Contacting the DRDanielle after DC Call your doctor for: Concerns you may have Follow-Up Follow up with: Dr. Marie in 1 week. YO MARIE Jr, MD May 01, 2019 17:05
--- NOTE | 2019-05-01 17:15 | NUR ---
Discharge instructions and follow up instructions given to patient. Pt verbalized understanding, denies questions.
--- NOTE | 2019-05-02 17:06 | PATHOLOGY ---
[facility] Accession Number: [id number] . 01 Material submitted: . fallopian tube - RIGHT FALLOPIAN TUBE AND ECTOPIC . Modifiers: right . 01 Clinical history: . Ectopic . . 02 Diagnosis: Fallopian tube, laparoscopic right salpingectomy: - Ectopic tubal . - Hematosalpinx. - Serosal adhesions, focal. (JPM:pit 05/02/2019) QTP 05/02/2019 1236 Local . 02 Electronically signed: . Hira Johnson MD, Pathologist NPI- [id number] . 01 Gross description: . Received in formalin labeled "Migdalia Lewis, right fallopian tube and ectopic " is a pink-escobedo fimbriated fallopian tube measuring 5.6 cm in length and 1.1-1.4 cm in diameter. The proximal aspect of the fallopian tube is ragged and disrupted over a 1.3 x 0.7 cm area. The fallopian tube is serially sectioned to reveal a pinpoint lumen throughout the specimen except for at the previously described disrupted area. The specimen is submitted entirely and sequentially from proximal to distal in cassettes A1-A4. ([facility]; 05/01/2019) [facility] 05/01/2019 1810 Local . 02 Pathologist provided ICD-10: O00.90, N83.6 . 02 CPT . 874815 Specimen Comment: A courtesy copy of this report has been sent to [phone] Specimen Comment: Report sent to Performed at: 01 [facility] [address], [place], [place] [id number] MD Pavel Leslie MD Phone: [phone] Performed at: [facility] [address] [place], [place] [id number] MD Hira Johnson MD Phone: [phone]
== END 2019-05-01 17:25 | disposition home or self-care (01) ==
LOC: ER 05:47 → INTOOBSV 08:30 → 3 NORTH 08:30
PROVIDERS: ADMIT Obstetrics & Gynecology; ATTEND Obstetrics & Gynecology
DX: O00.90 Unspecified ectopic pregnancy without intrauterine pregnancy (principal); Z3A.01 Less than 8 weeks gestation of pregnancy; Z98.891 History of uterine scar from previous surgery
CPT/HCPCS: 36415; 59151; 76775; 76801; 80053; 80307; 81001; 81025; 83690; 84702; 85025; 86850; 86900; 86901; 96374; 96375; 99284; A7015; G0378; J0690; J0780; J1100; J1885; J2001; J2250; J2270; J2405; J2704; J2710; J3010; J3490; J7030; 88305; G0379

== ENCOUNTER 2019-08-12 03:21 | Emergency (ER) | payer OTHER ==
[~2019-08-12] VITALS: Ht 162.6 cm; Wt 104.0 kg
[2019-08-12 04:09] LABS: BASO # 0.1 x10^3/uL (0.0-0.2); BASO % 1 % (0-3); EOS # 0.2 x10^3/uL (0.0-0.7); EOS % 3 % (0-3); HEMATOCRIT 37.1 % (36.0-47.0); HEMOGLOBIN 12.7 g/dL (12.0-15.5); LYMPH # 3.1 x10^3/uL (1.0-4.8); LYMPH % 50 % (24-48); MEAN CORPUSCULAR HEMOGLOBIN 32 pg (25-35); MEAN CORPUSCULAR HGB CONC 34 g/dL (31-37); MEAN CORPUSCULAR VOLUME 94 fL (79-100); MONO # 0.8 x10^3/uL (0.0-1.1); MONO % 12 % (0-9); NEUT # 2.1 x10^3/uL (1.8-7.7); NEUT % 33 % (31-73); PLATELET COUNT 272 x10^3/uL (140-400); RED BLOOD COUNT 3.97 x10^6/uL (3.50-5.40); RED CELL DISTRIBUTION WIDTH 14.8 % (11.5-14.5); WHITE BLOOD COUNT 6.2 x10^3/uL (4.0-11.0)
[2019-08-12 04:19] LABS: CALCIUM 9.4 mg/dL (8.5-10.1); CREATININE 1.1 mg/dL (0.6-1.0); POTASSIUM 3.3 mmol/L (3.5-5.1)
[2019-08-12 04:24] LABS: ALBUMIN 3.9 g/dL (3.4-5.0); ALBUMIN/GLOBULIN RATIO 1.2 (1.0-1.7); MAGNESIUM 1.9 mg/dL (1.8-2.4); TOTAL BILIRUBIN 0.1 mg/dL (0.2-1.0); TOTAL PROTEIN 7.2 g/dL (6.4-8.2)
--- NOTE | 2019-08-12 04:48 | PHYS DOC ---
Past Medical History Past Medical History: Asthma, Hypertension, Migraines Past Surgical History: Smoking Status: Current Every Day Smoker Alcohol Use: None Drug Use: None General Adult EDM: Chief Complaint: RAPID HEART RATE HPI: HPI: Patient is a 34 year old female who presents with complaint of palpitations after taking 1 of her aunts anxiety medications. She does not know what the medication was. She states that since that time she has felt like her heart is been racing and feels like it skips beats. She denies any associated chest pain or shortness of breath. Patient does admit to a history of anxiety herself. [] Review of Systems: Review of Systems: Constitutional: Denies fever or chills. [] Respiratory: Denies cough or shortness of breath. [] Cardiovascular: Denies chest pain or edema. [] Integument: Denies rash. [] Neurologic: Denies headache, focal weakness or sensory changes. [] A full 10 point review of systems has been reviewed and is otherwise negative. Heart Score: Risk Factors: Risk Factors: DM, Current or recent (<one month) smoker, HTN, HLP, family history of CAD, obesity. Risk Scores: Score 0 - 3: 2.5% MACE over next 6 weeks - Discharge Home Score 4 - 6: 20.3% MACE over next 6 weeks - Admit for Clinical Observation Score 7 - 10: 72.7% MACE over next 6 weeks - Early Invasive Strategies Allergies: Allergies: Allergies Coded Allergies Type Severity Reaction Last Updated Verified Penicillins Allergy Intermediate 07/04/14 No benzonatate Adverse Reaction Intermediate "i will throw up" 05/01/19 Yes prednisone Adverse Reaction Intermediate Nausea and Vomiting 05/01/19 No Physical Exam: PE: Constitutional: Well developed, well nourished, no acute distress, non-toxic appearance. [] HENT: Normocephalic, atraumatic, bilateral external ears normal, oropharynx moist, no oral exudates, nose normal. [] Eyes: PERRLA, EOMI, conjunctiva normal, no discharge. [] Neck: Normal range of motion, no tenderness, supple, no stridor. [] Cardiovascular: Regular rate and rhythm [] Lungs & Thorax: Bilateral breath sounds clear to auscultation [] Abdomen: Bowel sounds normal, soft, no tenderness. [] Skin: Warm, dry, no erythema, no rash. [] Extremities: No tenderness, no cyanosis, no clubbing, ROM intact. [] Neurologic: Alert and oriented X 3, no focal deficits noted. [] Current Patient Data: Labs: Laboratory Tests Test 08/12/19 03:55 White Blood Count 6.2 x10^3/uL (4.0-11.0) Red Blood Count 3.97 x10^6/uL (3.50-5.40) Hemoglobin 12.7 g/dL (12.0-15.5) Hematocrit 37.1 % (36.0-47.0) Mean Corpuscular Volume 94 fL (79-100) Mean Corpuscular Hemoglobin 32 pg (25-35) Mean Corpuscular Hemoglobin Concent 34 g/dL (31-37) Red Cell Distribution Width 14.8 % (11.5-14.5) H Platelet Count 272 x10^3/uL (140-400) Neutrophils (%) (Auto) 33 % (31-73) Lymphocytes (%) (Auto) 50 % (24-48) H Monocytes (%) (Auto) 12 % (0-9) H Eosinophils (%) (Auto) 3 % (0-3) Basophils (%) (Auto) 1 % (0-3) Neutrophils # (Auto) 2.1 x10^3/uL (1.8-7.7) Lymphocytes # (Auto) 3.1 x10^3/uL (1.0-4.8) Monocytes # (Auto) 0.8 x10^3/uL (0.0-1.1) Eosinophils # (Auto) 0.2 x10^3/uL (0.0-0.7) Basophils # (Auto) 0.1 x10^3/uL (0.0-0.2) Sodium Level 139 mmol/L (136-145) Potassium Level 3.3 mmol/L (3.5-5.1) L Chloride Level 104 mmol/L (98-107) Carbon Dioxide Level 25 mmol/L (21-32) Anion Gap 10 (6-14) Blood Urea Nitrogen 5 mg/dL (7-20) L Creatinine 1.1 mg/dL (0.6-1.0) H Estimated GFR (Cockcroft-Gault) 68.0 BUN/Creatinine Ratio 5 (6-20) L Glucose Level 90 mg/dL (70-99) Calcium Level 9.4 mg/dL (8.5-10.1) Magnesium Level 1.9 mg/dL (1.8-2.4) Total Bilirubin 0.1 mg/dL (0.2-1.0) L Aspartate Amino Transferase (AST) 17 U/L (15-37) Alanine Aminotransferase (ALT) 20 U/L (14-59) Alkaline Phosphatase 62 U/L (46-116) Troponin I Quantitative < 0.017 ng/mL (0.000-0.055) Total Protein 7.2 g/dL (6.4-8.2) Albumin 3.9 g/dL (3.4-5.0) Albumin/Globulin Ratio 1.2 (1.0-1.7) Laboratory Tests 08/12/19 03:55 Laboratory Tests 08/12/19 03:55 Vital Signs: Vital Signs Date Time Temp Pulse Resp B/P (MAP) Pulse Ox O2 Delivery O2 Flow Rate FiO2 08/12/19 03:36 98.9 75 18 161/96 (117) 100 98.9 EKG: EKG: [] Radiology/Procedures: Radiology/Procedures: [] Course & Med Decision Making: Course & Med Decision Making Pertinent Labs and Imaging studies reviewed. (See chart for details) [] Dragon Disclaimer: Dragon Disclaimer: This electronic medical record was generated, in whole or in part, using a voice recognition dictation system. Departure Departure Impression: Primary Impression: Palpitations Disposition: 01 HOME, SELF-CARE Condition: STABLE Referrals: NO PCP (PCP) Patient Instructions: Palpitations Justicifation of Admission Dx: Justifications for Admission: Justification of Admission Dx: Comment: (Not applicable) RICKEY ALEXIS Jr. DO Aug 12, 2019 04:48
[2019-08-12 04:50] VITALS: BP 158/84
--- NOTE | 2019-08-12 06:17 | EKG ---
[facility] [address] [place] [address] Test Date: 2019-08-12 Test Time: 03:38:16 Pat Name: ARAVIND GALLARDO Department: Room: Gender: F Community Product Specialist: : [id number] Requested By: RICKEY ALEXIS Order Number: [id number] Reading MD: Measurements Intervals [place] Rate: 65 P: 38 CT: 160 QRS: 56 QRSD: 88 T: 22 QT: 378 QTc: 398 Interpretive Statements SINUS RHYTHM ATRIAL PREMATURE COMPLEX(ES) R-S TRANSITION ZONE IN V LEADS DISPLACED TO THE LEFT OTHERWISE NORMAL ECG RI6.02 No previous ECG available for comparison
== END 2019-08-12 04:54 | disposition home or self-care (01) ==
LOC: ER 03:21
DX: R00.2 Palpitations (principal); F41.9 Anxiety disorder, unspecified; I10 Essential (primary) hypertension; G43.909 Migraine, unspecified, not intractable, without status migrainosus; J45.909 Unspecified asthma, uncomplicated; F17.200 Nicotine dependence, unspecified, uncomplicated; Z88.0 Allergy status to penicillin; Z88.5 Allergy status to narcotic agent; Z88.8 Allergy status to other drugs, medicaments and biological substances
CPT/HCPCS: 36415; 80053; 83735; 84484; 85025; 93005; 99284

== ENCOUNTER 2019-09-07 03:21 | Emergency (ER) | payer OTHER ==
[~2019-09-07] VITALS: Ht 162.6 cm; Wt 93.9 kg
[2019-09-07] MEDS ORDERED: LORA0.5T96 PO (03:54)
--- NOTE | 2019-09-07 04:10 | PHYS DOC ---
Past Medical History Past Medical History: Asthma, Hypertension, Migraines Past Surgical History: Smoking Status: Current Every Day Smoker Alcohol Use: None Drug Use: None General Adult EDM: Chief Complaint: ANXIETY/PANIC ATTACK HPI: HPI: Patient is a 34 year old female presenting with anxiety. She cannot sleep she has palpitations she want something for anxiety. She was here a few weeks ago with similar symptoms no chest pain no shortness of breath of note on her last ER visit she had labs which were essentially unremarkable Review of Systems: Review of Systems: Constitutional: Denies fever or chills. [] Eyes: Denies change in visual acuity. [] HENT: Denies nasal congestion or sore throat. [] Respiratory: Musculoskeletal: Denies back pain or joint pain. [] Integument: Denies rash. [] Neurologic: Denies headache, focal weakness or sensory changes. [] Endocrine: Denies polyuria or polydipsia. [] Lymphatic: Denies swollen glands. [] Psychiatric: Denies depression or anxiety. [] Heart Score: Risk Factors: Risk Factors: DM, Current or recent (<one month) smoker, HTN, HLP, family history of CAD, obesity. Risk Scores: Score 0 - 3: 2.5% MACE over next 6 weeks - Discharge Home Score 4 - 6: 20.3% MACE over next 6 weeks - Admit for Clinical Observation Score 7 - 10: 72.7% MACE over next 6 weeks - Early Invasive Strategies Current Medications: Current Medications Medications (Trade) Dose Ordered Sig/Rosa Maria Start Time Stop Time Status Last Admin Dose Admin Lorazepam (Ativan) 1 mg 1X ONCE 09/07/19 04:30 09/07/19 04:31 Allergies: Allergies: Allergies Coded Allergies Type Severity Reaction Last Updated Verified Penicillins Allergy Intermediate 07/04/14 No benzonatate Adverse Reaction Intermediate "i will throw up" 05/01/19 Yes prednisone Adverse Reaction Intermediate Nausea and Vomiting 05/01/19 No Physical Exam: PE: Constitutional: Well developed, well nourished, no acute distress, non-toxic appearance. [] HENT: Normocephalic, atraumatic, bilateral external ears normal, oropharynx moist, no oral exudates, nose normal. [] Eyes: PERRLA, EOMI, conjunctiva normal, no discharge. [] Neck: Normal range of motion, no tenderness, supple, no stridor. [] Cardiovascular:Heart rate regular rhythm, no murmur [] Lungs & Thorax: Bilateral breath sounds clear to auscultation [] Abdomen: Bowel sounds normal, soft, no tenderness, no masses, no pulsatile masses. [] Skin: Warm, dry, no erythema, no rash. [] Back: No tenderness, no CVA tenderness. [] Extremities: No tenderness, no cyanosis, no clubbing, ROM intact, no edema. [] Neurologic: Alert and oriented X 3, normal motor function, normal sensory function, no focal deficits noted. [] Psychologic: Mild anxiety noted otherwise patient is calm and cooperative Current Patient Data: Vital Signs: Heart rate is 80 patient afebrile blood pressure in the 150 systolic EKG: EKG: [] Normal sinus rhythm rate of 80 no acute STEMI or ischemia Radiology/Procedures: Radiology/Procedures: [] Course & Med Decision Making: Course & Med Decision Making Pertinent Labs and Imaging studies reviewed. (See chart for details) [] 34-year-old female with a history of anxiety presenting with same. Patient reported palpitations but had normal heart rate normal sinus rhythm on EKG Patient was given Ativan short course and advised the importance of obtaining primary care for follow-up of this subacute or chronic condition. Dionicio Disclaimer: Dionicio Disclaimer: This electronic medical record was generated, in whole or in part, using a voice recognition dictation system. Departure Departure Impression: Primary Impression: Anxiety Disposition: HOME, SELF-CARE Condition: STABLE Patient Instructions: Anxiety and Panic Attacks, [id number] Scripts Lorazepam (ATIVAN) 0.5 Mg Tablet 0.5 MG PO TID PRN for ANXIETY / AGITATION, #10 TAB Prov: DMITRY MOYER MD 09/07/19 Justicifation of Admission Dx: Justifications for Admission: Justification of Admission Dx: N/A DMITRY MOYER MD Sep 07, 2019 04:10
[2019-09-07 04:15] VITALS: BP 145/88
[2019-09-07] MEDS ORDERED: LORazepam 0.5 MG TABLET PO ONE (04:30)
--- NOTE | 2019-09-08 10:59 | EKG ---
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
== END 2019-09-07 04:30 | disposition home or self-care (01) ==
LOC: ER 03:21
DX: F41.9 Anxiety disorder, unspecified (principal); R00.2 Palpitations; J45.909 Unspecified asthma, uncomplicated; I10 Essential (primary) hypertension; G43.909 Migraine, unspecified, not intractable, without status migrainosus; F17.200 Nicotine dependence, unspecified, uncomplicated; Z98.890 Other specified postprocedural states; Z88.8 Allergy status to other drugs, medicaments and biological substances
CPT/HCPCS: 93005; 99283

== ENCOUNTER 2020-07-05 19:41 | Emergency (ER) | payer OTHER ==
[~2020-07-05] VITALS: Ht 160 cm; Wt 86.0 kg
[~2020-07-05 19:41] MED LIST changes: -CETI10TA24 PO; +CETI10TA74 PO; -CLIN150C14 PO; +CLIN150C15 PO; -LISI-334 PO; +LISI20TA18 PO; +LORA0.5T96 PO
[2020-07-05] MEDS ORDERED: ONDANSETRON PF 4 MG/2 ML VIAL. IVP ONE (20:15)
[2020-07-05] MEDS ORDERED: MORPHINE SULFATE 4 MG/ML VIAL. IV ONE (20:15)
[2020-07-05] MEDS ORDERED: IV NORMAL SALINE 1000ML BAG 1,000 ML IV ONE (20:15)
[2020-07-05 20:24] LABS: BASO # 0.1 x10^3/uL (0.0-0.2); BASO % 1 % (0-3); EOS # 0.3 x10^3/uL (0.0-0.7); EOS % 6 % (0-3); HEMATOCRIT 38.4 % (36.0-47.0); HEMOGLOBIN 13.1 g/dL (12.0-15.5); LYMPH # 2.8 x10^3/uL (1.0-4.8); LYMPH % 51 % (24-48); MEAN CORPUSCULAR HEMOGLOBIN 32 pg (25-35); MEAN CORPUSCULAR HGB CONC 34 g/dL (31-37); MEAN CORPUSCULAR VOLUME 92 fL (79-100); MONO # 0.7 x10^3/uL (0.0-1.1); MONO % 12 % (0-9); NEUT # 1.7 x10^3/uL (1.8-7.7); NEUT % 31 % (31-73); PLATELET COUNT 285 x10^3/uL (140-400); RED BLOOD COUNT 4.17 x10^6/uL (3.50-5.40); WHITE BLOOD COUNT 5.6 x10^3/uL (4.0-11.0)
[2020-07-05 20:26] LABS: BILIRUBIN,URINE NEGATIVE (NEG); CLARITY,URINE CLEAR; COLOR,URINE YELLOW; NITRITE,URINE NEGATIVE (NEG); PROTEIN,URINE NEGATIVE (NEG-TRACE); UROBILINOGEN,URINE 0.2 mg/dL (0.2 mg/dL)
[2020-07-05 20:33] LABS: CALCIUM 8.4 mg/dL (8.5-10.1); CREATININE 1.1 mg/dL (0.6-1.0); GFR 67.6; POTASSIUM 3.8 mmol/L (3.5-5.1)
[2020-07-05 20:34] LABS: BACTERIA,URINE FEW /HPF (0-FEW); RBC,URINE 0 /HPF (0-2); WBC,URINE OCC /HPF (0-4)
[2020-07-05 20:38] LABS: ALBUMIN 3.8 g/dL (3.4-5.0); ALBUMIN/GLOBULIN RATIO 1.1 (1.0-1.7); TOTAL BILIRUBIN 0.2 mg/dL (0.2-1.0); TOTAL PROTEIN 7.4 g/dL (6.4-8.2)
[2020-07-05] MEDS ORDERED: IOHEXOL 300 MG/ML 100ML VIAL. IV ONE (21:00)
--- NOTE | 2020-07-05 21:19 | RAD ---
Exam: CT of abdomen and pelvis with contrast INDICATION: Right lower quadrant pain TECHNIQUE: Sequential axial images through the abdomen and pelvis obtained following the administrati on of 74 mL of Isovue-370 IV contrast. Sagittal and coronal reformatted images were reconstructed fro m the axial data and reviewed. Exposure: One or more of the following in the visualized dose reduction techniques were utilized for this examination: 1. Automated exposure control 2. Adjustment of the MA and/or KV according to patient size 3. Use of iterative of reconstructive technique Comparisons: None FINDINGS: Heart size is normal. No pericardial effusion. Visualized lung bases are clear. No pleural effusion. Liver, spleen, pancreas, gallbladder and adrenals are unremarkable. No perinephric inflammation or hydronephrosis. No renal or ureteral calculi are identified. Bladder is distended and appears thin-walled. Uterus is nonenlarged. Likely pedunculated fibroid exte nding into the left adnexa. Large amount stool is noted in the colon. Appendix is normal. No free intra-abdominal air or fluid. N o obstruction. Small bowel is unremarkable. Abdominal aorta has a normal course and caliber. Abdominal vasculature is patent. No enlarged intra-abdominal lymph nodes are identified. No suspicious osseous lesions or acute fractures. IMPRESSION: 1. Fibroid uterus incompletely characterized on CT. Ultrasound would better evaluate. 2. Otherwise, no acute process identified in the abdomen or pelvis. Electronically signed by: Joey Hoyos MD (07/05/2020 9:17 PM) [facility]
[2020-07-05 22:25] VITALS: BP 186/119
[2020-07-05] MEDS ORDERED: TRAM50TA PO (22:29)
[2020-07-05] MEDS ORDERED: LISI-130 PO (22:29)
--- NOTE | 2020-07-05 22:29 | PHYS DOC ---
Past Medical History Past Medical History: Asthma, Hypertension, Migraines (CIARAN PAGE Mundo EMAIL DESIGNER) Past Surgical History: , Other Additional Past Surgical Histo: D & C (CIARAN PAGE EMAIL DESIGNER) Smoking Status: Current Every Day Smoker Additional Information: 1/2 PER DAY Alcohol Use: None Drug Use: None (CIARAN PAGE [employer] EMAIL DESIGNER) General Adult EDM: Chief Complaint: ABDOMINAL PAIN HPI: HPI: Patient is a 35 year old female with history of hypertension, migraine headaches, who presents to the ED today complaining of 8 out of 10 throbbing intermittent right lower quadrant abdominal pain, symptoms began 3 days ago. Patient denies any nausea, vomiting, diarrhea, fever. She states her last menstrual cycle was yesterday. (CIARAN PAGE EMAIL DESIGNER) Review of Systems: Review of Systems: Constitutional: Denies fever or chills. [] Eyes: Denies change in visual acuity. [] HENT: Denies nasal congestion or sore throat. [] Respiratory: Denies cough or shortness of breath. [] Cardiovascular: Denies chest pain or edema. [] GI: Reports right lower quadrant abdominal pain, denies nausea, vomiting, bloody stools or diarrhea. [] : Denies dysuria. [] Musculoskeletal: Denies back pain or joint pain. [] Integument: Denies rash. [] Neurologic: Denies headache, focal weakness or sensory changes. [] Psychiatric: Denies depression or anxiety. [] (CIARAN PAGE [employer] EMAIL DESIGNER) Heart Score: C/O Chest Pain: N/A Risk Factors: Risk Factors: DM, Current or recent (<one month) smoker, HTN, HLP, family history of CAD, obesity. Risk Scores: Score 0 - 3: 2.5% MACE over next 6 weeks - Discharge Home Score 4 - 6: 20.3% MACE over next 6 weeks - Admit for Clinical Observation Score 7 - 10: 72.7% MACE over next 6 weeks - Early Invasive Strategies (CIARAN PAGE [employer] EMAIL DESIGNER) Current Medications: Current Medications Medications (Trade) Dose Ordered Sig/Rosa Maria Start Time Stop Time Status Last Admin Dose Admin Iohexol (Omnipaque 300 Mg/ml) 75 ml 1X ONCE 07/05/20 21:00 07/05/20 21:01 DC 07/05/20 21:11 75 ML Morphine Sulfate (Morphine Sulfate) 4 mg 1X ONCE 07/05/20 20:15 07/05/20 20:19 DC Ondansetron HCl (Zofran) 4 mg 1X ONCE 07/05/20 20:15 07/05/20 20:19 DC Sodium Chloride 1,000 ml @ 1,000 mls/hr 1X ONCE 07/05/20 20:15 07/05/20 21:14 DC 07/05/20 20:33 1,000 MLS/HR (CIARAN PAGE EMAIL DESIGNER) Allergies: Allergies: Allergies Coded Allergies Type Severity Reaction Last Updated Verified Penicillins Allergy Intermediate 07/04/14 No benzonatate Adverse Reaction Intermediate "i will throw up" 05/01/19 Yes prednisone Adverse Reaction Intermediate Nausea and Vomiting 05/01/19 No (CIARAN PAGE APRN) Physical Exam: PE: Constitutional: Well developed, well nourished, no acute distress, non-toxic appearance. [] HENT: Normocephalic, atraumatic, bilateral external ears normal, oropharynx m oist, no oral exudates, nose normal. [] Eyes: PERRLA, EOMI, conjunctiva normal, no discharge. [] Neck: Normal range of motion, no tenderness, supple, no stridor. [] Cardiovascular:Heart rate regular rhythm, no murmur [] Lungs & Thorax: Bilateral breath sounds clear to auscultation [] Abdomen: Bowel sounds normal, soft, no tenderness, no masses, no pulsatile masses. [] Skin: Warm, dry, no erythema, no rash. [] Back: No tenderness, no CVA tenderness. [] Extremities: No tenderness, no cyanosis, no clubbing, ROM intact, no edema. [] Neurologic: Alert and oriented X 3, normal motor function, normal sensory function, no focal deficits noted. [] Psychologic: Affect normal, judgement normal, mood normal. [] (CIARAN PAGE EMAIL DESIGNER) Current Patient Data: Labs: Laboratory Tests Test 07/05/20 19:58 07/05/20 20:05 07/05/20 20:15 Urine Collection Type Unknown Urine Color Yellow Urine Clarity Clear Urine pH 6.0 (<5.0-8.0) Urine Specific [place] 1.020 (1.000-1.030) Urine Protein Negative mg/dL (NEG-TRACE) Urine Glucose (UA) Negative mg/dL (NEG) Urine Ketones (Stick) Negative mg/dL (NEG) Urine Blood Negative (NEG) Urine Nitrite Negative (NEG) Urine Bilirubin Negative (NEG) Urine Urobilinogen Dipstick 0.2 mg/dL (0.2 mg/dL) Urine Leukocyte Esterase Negative (NEG) Urine RBC 0 /HPF (0-2) Urine WBC Occ /HPF (0-4) Urine Squamous Epithelial Cells Mod /LPF Urine Bacteria Few /HPF (0-FEW) POC Urine HCG, Qualitative Hcg negative (Negative) White Blood Count 5.6 x10^3/uL (4.0-11.0) Red Blood Count 4.17 x10^6/uL (3.50-5.40) Hemoglobin 13.1 g/dL (12.0-15.5) Hematocrit 38.4 % (36.0-47.0) Mean Corpuscular Volume 92 fL (79-100) Mean Corpuscular Hemoglobin 32 pg (25-35) Mean Corpuscular Hemoglobin Concent 34 g/dL (31-37) Red Cell Distribution Width 16.0 % (11.5-14.5) H Platelet Count 285 x10^3/uL (140-400) Neutrophils (%) (Auto) 31 % (31-73) Lymphocytes (%) (Auto) 51 % (24-48) H Monocytes (%) (Auto) 12 % (0-9) H Eosinophils (%) (Auto) 6 % (0-3) H Basophils (%) (Auto) 1 % (0-3) Neutrophils # (Auto) 1.7 x10^3/uL (1.8-7.7) L Lymphocytes # (Auto) 2.8 x10^3/uL (1.0-4.8) Monocytes # (Auto) 0.7 x10^3/uL (0.0-1.1) Eosinophils # (Auto) 0.3 x10^3/uL (0.0-0.7) Basophils # (Auto) 0.1 x10^3/uL (0.0-0.2) Sodium Level 139 mmol/L (136-145) Potassium Level 3.8 mmol/L (3.5-5.1) Chloride Level 105 mmol/L (98-107) Carbon Dioxide Level 27 mmol/L (21-32) Anion Gap 7 (6-14) Blood Urea Nitrogen 10 mg/dL (7-20) Creatinine 1.1 mg/dL (0.6-1.0) H Estimated GFR (Cockcroft-Gault) 67.6 BUN/Creatinine Ratio 9 (6-20) Glucose Level 97 mg/dL (70-99) Calcium Level 8.4 mg/dL (8.5-10.1) L Total Bilirubin 0.2 mg/dL (0.2-1.0) Aspartate Amino Transferase (AST) 27 U/L (15-37) Alanine Aminotransferase (ALT) 37 U/L (14-59) Alkaline Phosphatase 84 U/L (46-116) Total Protein 7.4 g/dL (6.4-8.2) Albumin 3.8 g/dL (3.4-5.0) Albumin/Globulin Ratio 1.1 (1.0-1.7) Lipase 113 U/L (73-393) Laboratory Tests 07/05/20 20:15 Laboratory Tests 07/05/20 20:15 Vital Signs: Vital Signs Date Time Temp Pulse Resp B/P (MAP) Pulse Ox O2 Delivery O2 Flow Rate FiO2 07/05/20 21:03 165/93 (117) 07/05/20 20:22 97.7 91 18 98 Room Air 97.7 (CIARAN PAGE [facility] [place]) EKG: EKG: [] (CIARAN PAGE [facility] [place]) Radiology/Procedures: Radiology/Procedures: []PROCEDURE: CT ABD PELV W/ IV CONTRST ONLY Exam: CT of abdomen and pelvis with contrast INDICATION: Right lower quadrant pain TECHNIQUE: Sequential axial images through the abdomen and pelvis obtained following the administration of 74 mL of Isovue-370 IV contrast. Sagittal and coronal reformatted images were reconstructed from the axial data and reviewed. Exposure: One or more of the following in the visualized dose reduction techniques were utilized for this examination: 1. Automated exposure control 2. Adjustment of the MA and/or KV according to patient size 3. Use of iterative of reconstructive technique Comparisons: None FINDINGS: Heart size is normal. No pericardial effusion. Visualized lung bases are clear. No pleural effusion. Liver, spleen, pancreas, gallbladder and adrenals are unremarkable. No perinephric inflammation or hydronephrosis. No renal or ureteral calculi are identified. Bladder is distended and appears thin-walled. Uterus is nonenlarged. Likely pedunculated fibroid extending into the left adnexa. Large amount stool is noted in the colon. Appendix is normal. No free intra- abdominal air or fluid. No obstruction. Small bowel is unremarkable. Abdominal aorta has a normal course and caliber. Abdominal vasculature is pa tent. No enlarged intra-abdominal lymph nodes are identified. No suspicious osseous lesions or acute fractures. IMPRESSION: 1. Fibroid uterus incompletely characterized on CT. Ultrasound would better evaluate. 2. Otherwise, no acute process identified in the abdomen or pelvis. Electronically signed by: Joey Del Cid MD (07/05/2020 9:17 PM) [facility] DICTATED and SIGNED BY: JOEY DEL CID MD DATE: 07/05/20 [id number] (CIARAN PAGE APRN) Course & Med Decision Making: Course & Med Decision Making Pertinent Labs and Imaging studies reviewed. (See chart for details) This is a 35-year-old female patient presented to the ED today with right lower quadrant abdominal pain, symptoms began 3 days ago. Negative urine hCG, UA negative. CBC CMP with no acute findings, CT of the abdomen and pelvic was not ed for fibroids otherwise no acute findings. Provided OB for follow-up. Patient's blood pressure was 187/126, she states she has history of hypertension, she states she has not taken her blood pressure medicine for over 3 months because she ran out of the medicine. Denies any headache or chest pa in. Patient was given prescription for her blood pressure medicine (CIARAN PAGE APRN) Course & Med Decision Making The chart was reviewed. I did not see the patient. The P evaluated and treated the patient independently. I was available for consult. (JERONIMO BLANCHARD DO) [place] Disclaimer: Dionicio Disclaimer: This electronic medical record was generated, in whole or in part, using a voice recognition dictation system. (CIARAN PAGE APRN) Departure Departure Impression: Primary Impression: Right lower quadrant pain Additional Impressions: Fibroid, uterine Qualified Codes: D25.9 - Leiomyoma of uterus, unspecified Hypertension Qualified Codes: I10 - Essential (primary) hypertension Disposition: HOME / SELF CARE / HOMELESS Condition: STABLE Referrals: NO PCP (PCP) LOGAN KIRBY MD follow up in 1 week Patient Instructions: Fibroids, [id number], Hypertension Additional Instructions: You were seen in the emergency room and noted to have fibroids. Please follow- up with the provided MACHINIST HELPER MARINE. Please follow-up with the primary care doctor for your blood pressure Scripts Tramadol Hcl (TRAMADOL HCL) 50 Mg Tablet 50 MG PO Q6HRS PRN for PAIN, #20 TAB Prov: CIARAN PAGE APRN 07/05/20 Lisinopril (LISINOPRIL) 40 Mg Tablet 1 TAB PO DAILY, #90 TAB 3 Refills Prov: CIARAN PAGE APRN 07/05/20 CIARAN PAGE APRN July 05, 2020 22:29 JERONIMO BLANCHARD I DO July 08, 2020 18:01
== END 2020-07-05 22:30 | disposition home or self-care (01) ==
LOC: ER 19:41
DX: D25.9 Leiomyoma of uterus, unspecified (principal); I10 Essential (primary) hypertension; J45.909 Unspecified asthma, uncomplicated; G43.909 Migraine, unspecified, not intractable, without status migrainosus; F17.200 Nicotine dependence, unspecified, uncomplicated; Z88.0 Allergy status to penicillin; Z88.5 Allergy status to narcotic agent; Z88.8 Allergy status to other drugs, medicaments and biological substances
CPT/HCPCS: 36415; 74177; 80053; 81001; 81025; 83690; 85025; 96360; 99285; J7030; Q9967

== ENCOUNTER 2020-07-24 22:31 | Emergency (ER) | payer OTHER ==
[~2020-07-24] VITALS: Ht 170.2 cm; Wt 100.0 kg
[2020-07-24 22:59] LABS: BILIRUBIN,URINE NEGATIVE (NEG); CLARITY,URINE CLEAR; COLOR,URINE AMBER; NITRITE,URINE NEGATIVE (NEG); PROTEIN,URINE 30 mg/dL (NEG-TRACE)
[2020-07-24 23:07] LABS: BACTERIA,URINE FEW /HPF (0-FEW); RBC,URINE TNTC /HPF (0-2)
[2020-07-24] MEDS ORDERED: METOCLOPRAMIDE HCL 10 MG/2 ML VIAL. IVP ONE (23:30)
[2020-07-24] MEDS ORDERED: IV NORMAL SALINE 1000ML BAG 1,000 ML IV ONE (23:30)
[2020-07-24] MEDS ORDERED: KETOROLAC 15 MG/ML VIAL. IVP ONE (23:30)
[2020-07-24 23:45] VITALS: BP 168/97
--- NOTE | 2020-07-25 00:03 | RAD ---
Exam Date: 07/24/2020 11:[address] ABDOMEN+PELVIS WO Indication: Reason: RLQ pain, right flank pain, eval for ureteral calculi / Spl. Instructions: / His tory: TECHNIQUE: CT examination of the abdomen and pelvis was performed without oral or intravenous contra st. One or more of the following dose reduction techniques were utilized: *Automated exposure control (AEC) *Adjustment of mA and/or kV according to patient size *Use of iterative reconstruction technique *CT scan done according to ALARA, or ALARA/IMAGE GENTLY COMPARISON: July 05, 2020 FINDINGS: The visualized lung bases are clear. The liver, gallbladder, spleen, pancreas, and adrenal glands are normal. The kidneys are normal bilaterally. No hydronephrosis or hydroureter is seen. No urinary tract calc andreea are seen. Urinary bladder is normal in appearance. There is no bowel obstruction or inflammation. The appendix is normal. No significant atherosclerotic calcifications are seen. No lymphadenopathy or ascites is seen. Osseous structures are intact. IMPRESSION: Normal appearance of the kidneys and bladder. No hydronephrosis or hydroureter. No urinary tract ca lculi. Electronically signed by: Derian Webster MD (07/25/2020 12:01 AM) [facility]
[2020-07-25 00:12] LABS: BASO # 0.1 x10^3/uL (0.0-0.2); BASO % 2 % (0-3); EOS # 0.2 x10^3/uL (0.0-0.7); EOS % 3 % (0-3); HEMATOCRIT 35.4 % (36.0-47.0); HEMOGLOBIN 11.9 g/dL (12.0-15.5); LYMPH # 2.4 x10^3/uL (1.0-4.8); LYMPH % 39 % (24-48); MEAN CORPUSCULAR HEMOGLOBIN 31 pg (25-35); MEAN CORPUSCULAR HGB CONC 34 g/dL (31-37); MEAN CORPUSCULAR VOLUME 93 fL (79-100); MONO % 16 % (0-9); NEUT # 2.5 x10^3/uL (1.8-7.7); NEUT % 41 % (31-73); PLATELET COUNT 290 x10^3/uL (140-400); RED BLOOD COUNT 3.82 x10^6/uL (3.50-5.40); RED CELL DISTRIBUTION WIDTH 16.1 % (11.5-14.5); WHITE BLOOD COUNT 6.2 x10^3/uL (4.0-11.0)
[2020-07-25 00:41] LABS: CALCIUM 9.3 mg/dL (8.5-10.1); CREATININE 1.2 mg/dL (0.6-1.0); GFR 61.2
--- NOTE | 2020-07-25 00:41 | PHYS DOC ---
Past Medical History Past Medical History: Asthma, Hypertension, Migraines Past Surgical History: , Other Additional Past Surgical Histo: D & C Smoking Status: Current Every Day Smoker Alcohol Use: None Drug Use: None General Adult EDM: Chief Complaint: URINARY RETENTION HPI: HPI: Patient is a 35 year old [f__sex] who presents with [] Review of Systems: Review of Systems: Constitutional: Denies fever or chills. [] Eyes: Denies change in visual acuity. [] HENT: Denies nasal congestion or sore throat. [] Respiratory: Denies cough or shortness of breath. [] Cardiovascular: Denies chest pain or edema. [] GI: Denies abdominal pain, nausea, vomiting, bloody stools or diarrhea. [] : Denies dysuria. [] Musculoskeletal: Denies back pain or joint pain. [] Integument: Denies rash. [] Neurologic: Denies headache, focal weakness or sensory changes. [] Endocrine: Denies polyuria or polydipsia. [] Lymphatic: Denies swollen glands. [] Psychiatric: Denies depression or anxiety. [] Heart Score: Risk Factors: Risk Factors: DM, Current or recent (<one month) smoker, HTN, HLP, family history of CAD, obesity. Risk Scores: Score 0 - 3: 2.5% MACE over next 6 weeks - Discharge Home Score 4 - 6: 20.3% MACE over next 6 weeks - Admit for Clinical Observation Score 7 - 10: 72.7% MACE over next 6 weeks - Early Invasive Strategies Current Medications: Current Medications Medications (Trade) Dose Ordered Sig/[facility] Start Time Stop Time Status Last Admin Dose Admin Ketorolac Tromethamine (Toradol 15mg Vial) 15 mg 1X ONCE 07/24/20 23:30 07/24/20 23:31 DC 07/25/20 00:09 15 MG Metoclopramide HCl (Reglan Vial) 10 mg 1X ONCE 07/24/20 23:30 07/24/20 23:31 DC 07/25/20 00:10 10 MG Sodium Chloride 1,000 ml @ 1,000 mls/hr 1X ONCE 07/24/20 23:30 07/25/20 00:29 DC 07/25/20 00:10 1,000 MLS/HR Allergies: Allergies: Allergies Coded Allergies Type Severity Reaction Last Updated Verified Penicillins Allergy Intermediate 07/04/14 No benzonatate Adverse Reaction Intermediate "i will throw up" 05/01/19 Yes prednisone Adverse Reaction Intermediate Nausea and Vomiting 05/01/19 No Physical Exam: PE: Constitutional: Well developed, well nourished, no acute distress, non-toxic appearance. [] HENT: Normocephalic, atraumatic, bilateral external ears normal, oropharynx moist, no oral exudates, nose normal. [] Eyes: PERRLA, EOMI, conjunctiva normal, no discharge. [] Neck: Normal range of motion, no tenderness, supple, no stridor. [] Cardiovascular:Heart rate regular rhythm, no murmur [] Lungs & Thorax: Bilateral breath sounds clear to auscultation [] Abdomen: Bowel sounds normal, soft, no tenderness, no masses, no pulsatile masses. [] Skin: Warm, dry, no erythema, no rash. [] Back: No tenderness, no CVA tenderness. [] Extremities: No tenderness, no cyanosis, no clubbing, ROM intact, no edema. [] Neurologic: Alert and oriented X 3, normal motor function, normal sensory function, no focal deficits noted. [] Psychologic: Affect normal, judgement normal, mood normal. [] Current Patient Data: Labs: Laboratory Tests Test 07/24/20 22:50 Urine Collection Type Unknown Urine Color Hyun Urine Clarity Clear Urine pH 6.0 (<5.0-8.0) Urine Specific [place] >=1.030 (1.000-1.030) Urine Protein 30 mg/dL (NEG-TRACE) Urine Glucose (UA) Negative mg/dL (NEG) Urine Ketones (Stick) Trace mg/dL (NEG) Urine Blood Large (NEG) Urine Nitrite Negative (NEG) Urine Bilirubin Negative (NEG) Urine Urobilinogen Dipstick 1.0 mg/dL (0.2 mg/dL) Urine Leukocyte Esterase Trace (NEG) Urine RBC Tntc /HPF (0-2) Urine WBC 5-10 /HPF (0-4) Urine Squamous Epithelial Cells Few /LPF Urine Bacteria Few /HPF (0-FEW) Urine Mucus Mod /LPF POC Urine HCG, Qualitative Hcg negative (Negative) Vital Signs: Vital Signs Date Time Temp Pulse Resp B/P (MAP) Pulse Ox O2 Delivery O2 Flow Rate FiO2 07/24/20 22:49 98.5 75 18 156/119 (131) 100 Room Air 98.5 EKG: EKG: [] Radiology/Procedures: Radiology/Procedures: [] Course & Med Decision Making: Course & Med Decision Making Pertinent Labs and Imaging studies reviewed. (See chart for details) [] Dragon Disclaimer: Dragon Disclaimer: This electronic medical record was generated, in whole or in part, using a voice recognition dictation system. Departure Departure Impression: Primary Impression: Abdominal pain Qualified Codes: R10.31 - Right lower quadrant pain Additional Impression: Left against medical advice Disposition: LEFT AGAINST MEDICAL ADVICE Condition: STABLE Referrals: NO PCP (PCP) Patient Instructions: Discharge Against Medical Advice, Uterine Fibroid, [id number] Additional Instructions: Please follow with your doctor. Prior Ultrasound from June 2020 noted a Fibroid in your uterus. Please follow with your MARKETING ADMINISTRATIVE ASSISTANT for further evaluation. Information regarding fibroid has been pr ovided. Take over the counter Tylenol and/or Ibuprofen for pain or discomfort. LOGAN JOHNSON DO Jul 25, 2020 00:41
[2020-07-25 00:47] LABS: ALBUMIN/GLOBULIN RATIO 1.1 (1.0-1.7); TOTAL BILIRUBIN 0.2 mg/dL (0.2-1.0); TOTAL PROTEIN 7.6 g/dL (6.4-8.2)
== END 2020-07-25 00:43 | disposition left against medical advice (07) ==
LOC: ER 22:31
DX: R10.31 Right lower quadrant pain (principal); J45.909 Unspecified asthma, uncomplicated; I10 Essential (primary) hypertension; G43.909 Migraine, unspecified, not intractable, without status migrainosus; F17.200 Nicotine dependence, unspecified, uncomplicated; Z98.890 Other specified postprocedural states; Z88.0 Allergy status to penicillin; Z88.8 Allergy status to other drugs, medicaments and biological substances
CPT/HCPCS: 36415; 74176; 80053; 81001; 81025; 83690; 85025; 87086; 96361; 96374; 96375; 99284; J1885; J2765; J7030